=== PATIENT | male | born 1960 | race Caucasian/White ===

== ENCOUNTER → 2019-06-28 09:11 | Outpatient (BNVA) | payer MEDICARE, MEDICAID, SELFPAY | PROVIDERS: Family Provider Family Medicine; PCP Family Medicine; Visit Provider Nurse Practitioner Family | DX: I10 Essential (primary) hypertension (principal); E78.5 Hyperlipidemia, unspecified; F33.1 Major depressive disorder, recurrent, moderate; E78.1 Pure hyperglyceridemia; Z68.24 Body mass index [BMI] 24.0-24.9, adult | CPT/HCPCS: 80053; 80061; 83721 ==

== ENCOUNTER 2020-01-06 07:53 | Outpatient (CLI) | payer MEDICARE, SELFPAY ==
--- NOTE | 2020-01-06 08:03 | CT_ITS ---
WS: [id number] EXAM: CT chest wo con [id number] DATE OF EXAMINATION: 01/06/2020, 0838 hours COMPARISON: CT of the chest from 12/28/2018 and 04/17/2018 HISTORY: 59 years old with follow-up pulmonary nodules. TECHNIQUE: Transaxial computed tomography images obtained through the chest without the utilization o f contrast with images viewed in multiple windows with reconstructions. DLP: 1021.[address] scans at [facility] use at least one of these dose optimization techniques: automat ed exposure control; mA and/or kV adjustment per patient size (includes targeted exams where dose is matched to clinical indication); or iterative reconstruction. FINDINGS: The tiny nodules in the superior segment of the right lower lobe are less well visualized on today's examination most likely related to volume averaging artifact. If anything are less apparent. Have not enlarged. No additional pulmonary nodules are seen. Definitely have regressed in size since the 2018 CT. Slight changes of cylindrical bronchiectasis are seen bilaterally. No mediastinal mass or adenop athy is seen. Heart size is normal. Coronary artery calcifications demonstrated. Thoracic and upper a bdominal aorta is normal in caliber. Axillary regions are normal in appearance. Upper abdomen solid o rgan attenuation is unremarkable. CT/CT chest wo con [id number] IMPRESSION: 2 tiny nodules within the superior segment of the right lower lobe less well vi sualized on today's examination. Have regressed in size since 2018. Considered benign. No new or enlarging pulmonary nodule seen. Findings of slight cylindrical bronchiectasis.
== END 2020-01-06 07:54 | disposition home or self-care (01) ==
PROVIDERS: Family Provider Family Medicine; PCP Family Medicine; Visit Provider Family Medicine
DX: R91.8 Other nonspecific abnormal finding of lung field (principal)
CPT/HCPCS: 71250

== ENCOUNTER → 2020-01-20 10:16 | Outpatient (BNVA) | payer MEDICARE, SELFPAY | PROVIDERS: Family Provider Family Medicine; PCP Family Medicine; Visit Provider Nurse Practitioner Family | DX: I10 Essential (primary) hypertension (principal); E78.1 Pure hyperglyceridemia; E78.2 Mixed hyperlipidemia; L40.9 Psoriasis, unspecified | CPT/HCPCS: 80053; 80061; 83721; 84439; 84443 ==

== ENCOUNTER → 2020-07-07 09:07 | Outpatient (BNVA) | payer MEDICARE, SELFPAY | PROVIDERS: Family Provider Family Medicine; PCP Nurse Practitioner Family; Visit Provider Nurse Practitioner Family | DX: E78.2 Mixed hyperlipidemia (principal) | CPT/HCPCS: 80061; 80076; 82550; 83721 ==

== ENCOUNTER 2020-10-05 06:00 | Outpatient (RCR) | payer MEDICARE, SELFPAY | END 2020-10-16 23:59 | disposition home or self-care (01) | LOC: GPT 06:00 | PROVIDERS: Family Provider Family Medicine; PCP Nurse Practitioner Family; Referring Provider Nurse Practitioner Family; Visit Provider Nurse Practitioner Family | DX: M54.2 Cervicalgia (principal); G89.29 Other chronic pain; R51.9 Headache, unspecified | CPT/HCPCS: 97032; 97110; 97161; 97530 ==

== ENCOUNTER → 2020-11-02 08:57 | Outpatient (BNVA) | payer MEDICARE, SELFPAY | PROVIDERS: Family Provider Family Medicine; PCP Nurse Practitioner Family; Visit Provider Dermatology | DX: L40.9 Psoriasis, unspecified (principal); Z79.899 Other long term (current) drug therapy | CPT/HCPCS: 80053; 85025; 86480; 86705; 86706; 86709; 86803; 87340; 87806 ==

== ENCOUNTER → 2020-11-07 09:56 | Outpatient (BNVA) | payer MEDICARE, SELFPAY | PROVIDERS: Family Provider Family Medicine; PCP Nurse Practitioner Family; Visit Provider Dermatology | DX: L40.9 Psoriasis, unspecified (principal); Z79.899 Other long term (current) drug therapy | CPT/HCPCS: 86480 ==

== ENCOUNTER → 2020-11-13 08:22 | Outpatient (BNVA) | payer MEDICARE, SELFPAY | PROVIDERS: Family Provider Family Medicine; PCP Nurse Practitioner Family; Visit Provider Dermatology | DX: R76.12 Nonspecific reaction to cell mediated immunity measurement of gamma interferon antigen response without active tuberculosis (principal) | CPT/HCPCS: 71046 ==

== ENCOUNTER → 2021-01-05 09:13 | Outpatient (BNVA) | payer MEDICARE, SELFPAY | PROVIDERS: Family Provider Family Medicine; PCP Nurse Practitioner Family; Visit Provider Nurse Practitioner Family | DX: Z22.7 Latent tuberculosis (principal) | CPT/HCPCS: 80076 ==

== ENCOUNTER → 2021-02-05 07:42 | Outpatient (BNVA) | payer MEDICARE, SELFPAY | PROVIDERS: Family Provider Family Medicine; PCP Nurse Practitioner Family; Visit Provider Nurse Practitioner Family | DX: E78.2 Mixed hyperlipidemia (principal); F33.1 Major depressive disorder, recurrent, moderate; I10 Essential (primary) hypertension; Z68.25 Body mass index [BMI] 25.0-25.9, adult | CPT/HCPCS: 80053; 80061; 83721 ==

== ENCOUNTER → 2021-02-16 07:54 | Outpatient (BNVA) | payer MEDICARE, SELFPAY | PROVIDERS: Family Provider Family Medicine; PCP Nurse Practitioner Family; Visit Provider Nurse Practitioner Family | DX: R06.02 Shortness of breath (principal); R05.9 Cough, unspecified; Z20.822 Contact with and (suspected) exposure to COVID-19 | CPT/HCPCS: 87635 ==

== ENCOUNTER 2021-02-18 03:31 | Inpatient (IN) | payer MEDICARE, MEDICAID, SELFPAY ==
[2021-02-18] VITALS (13 sets, daily range): BP systolic 108–154; BP diastolic 84–91; PULSE 89–99; RESP 17–26; TEMP 36.8–37.6; O2SAT 93–97; BMI 25.0
--- NOTE | 2021-02-18 04:05 | W.ED.SOB ---
Documented by User: Baljit Scott, DO 02/18/21 07:53 HPI - SOB/Dyspnea General: Chief Complaint: Shortness of Breath/Dyspnea Stated Complaint: SOB Time Seen by Provider: 02/18/21 04:03 History of Present Illness: HPI Narrative: 60-year-old male on week 12 of treatment for tuberculosis. He states his disease was not really active. He is taking rifampin plus isoniazid. He presents with acute onset shortness of breath worsening over the last 3 to 4 days. He does not usually use oxygen. He has had some clear sputum production. No fever. Some chest discomfort on and off. He notes some diarrhea which resolved with medication. MD elicited complaint: shortness of breath and cough Pertinent past history: other Onset (ago): day(s) Context: recent illness Timing: constant and progressively worsening Severity: moderate Exacerbating factors: lying flat and exertion Relieving factors: oxygen Known history of: other Associated symptoms: Reports abdominal pain, chest congestion, chest pain and nausea; Deny diaphoresis, extremity pain, fever(s), hemoptysis, rash or vomiting Treatment prior to arrival: none Review of Systems Const: Denies: fever(s) or diaphoresis Card: Reports: chest pain Resp: Reports: chest congestion; Denies: hemoptysis GI: Reports: abdominal pain and nausea; Denies: vomiting Musc: Denies: extremity pain PFSH ED PFSH: Medical History COPD (chronic obstructive pulmonary disease) Depression Enrolled in chronic care management Essential hypertension GERD (gastroesophageal reflux disease) High risk medication use Hyperlipidemia Hypertriglyceridemia Latent tuberculosis by blood test Lesion of chest Lung nodules Migraine with aura and without status migrainosus, not intractable Moderate episode of recurrent major 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 Post-traumatic stress disorder, chronic F43.12 Psychiatric care Surgical History History of cataract extraction BILATERAL History of laminectomy Hx of heart artery stent Social History Alcohol intake: current Alcohol intake frequency: holidays/special occasions only Alcohol type: beer Physical Exam Const: GENERAL APPEARANCE: well developed ORIENTATION/CONSCIOUSNESS: Yes oriented to person, Yes oriented to place and Yes oriented to time HENMT: COMMON NORMALS: normocephalic, external ears normal and Normal external nose present HEAD & SCALP: normocephalic FACE & SINUS: normal facial exam NOSE: Normal external nose present and No nasal discharge present EXTERNAL EAR: Yes external ears normal Eye: COMMON NORMALS: Equal, round and reactive pupils present, EOMs intact bilaterally and conjunctivae normal EYELID: eyelids normal CONJUNCTIVA: Yes conjunctivae normal PUPIL: Yes Equal, round and reactive pupils present Neck/C-Spine: COMMON NORMALS: full ROM GENERAL: No tracheal deviation CERVICAL SPINE: Yes normal cervical lordosis and No Cervical spine tenderness Chest: COMMONS NORMALS: normal inspection of the chest CHEST: Yes tenderness Resp: COMMON NORMALS: clear to auscultation bilaterally EFFORT & INSPECTION: No tachypneic, No respiratory distress, No retractions, No uses accessory muscles and No tracheal deviation AUSCULTATION: clear to auscultation bilaterally, no rhonchi, no wheezes and lung sounds not diminished Cardio: COMMON NORMALS: regular rhythm RATE: tachycardic RHYTHM: regular rhythm HEART SOUNDS: no murmurs PERIPHERAL PULSES: radial pulses present GI: INSPECTION: No abdominal distension AUSCULTATION: No Hyperactive bowel sounds present and No Hypoactive bowel sounds present PALPATION: No Guarding due to palpation present (GI) and No Rigid due to palpation PERCUSSION: no dullness to percussion and no tympanic to percussion Neuro: SENSORIUM/ORIENTATION: Yes oriented to person, Yes oriented to place and Yes oriented to time Psych: COMMON NORMALS: mental status grossly normal Skin: COMMON NORMALS: no rashes or lesions noted GENERAL SKIN EXAM: no rashes or lesions noted Course Vital Signs: Vital signs: Vital Signs Temperature 98.2 F 02/18/21 03:33 Pulse Rate 96 02/18/21 08:38 Respiratory Rate 21 H 02/18/21 08:38 Blood Pressure 108/84 02/18/21 04:55 Pulse Oximetry 95 02/18/21 08:38 MDM - SOB/Dyspnea MDM Narrative: Medical decision making narrative: 60-year-old male with hypoxic respiratory failure. His chest x-ray does not show an infiltrate. His white count is 6.6 with mild relative lymphopenia. His D-dimer is not significantly elevated. He is feeling better after breathing treatment and Solu-Medrol. He is still on 4 L of oxygen satting only 92%. His blood pressure is 138/82. CTA of the chest is pending as is a second troponin at this point. He will be checked out to Dr. Olea at shift change to follow-up on these tests and provide appropriate disposition. Lab Data: Labs: Lab Results 02/18/21 02/18/21 02/18/21 04:00 04:00 04:00 WBC 6.6 10^3/uL 10^3/ uL (4.0-10.0) RBC 4.24 10^6/uL 10^6 /uL (4.1-5.3) Hgb 13.6 g/dL g/dL (11.7-16.6) Hct 40.9 % L % (42.0-52.0) MCV 96.5 fl H fl (80-94) MCH 32.1 pg pg (28.0-34.0) MCHC 33.3 g/dL g/dL (30.0-36.0) RDW 13.4 % % (12.1-15.1) Plt Count 130 10^3/cmm 10^3 /cmm (130-400) MPV 11.4 fL H fL (7.4-10.4) Neut % (Auto) 82.3 % % Lymph % (Auto) 7.4 % % [place] % (Auto) 9.3 % % Eos % (Auto) 0.3 % % Baso % (Auto) 0.2 % % Neut # (Auto) 5.47 10^3/uL 10^3 /uL (1.8-7.7) Lymph # (Auto) 0.5 10^3/uL L 10^ 3/uL (0.8-4.8) [place] # (Auto) 0.6 10^3/uL 10^3/ uL (0.2-0.9) Eos # (Auto) 0.0 10^3/uL 10^3/ uL (0.0-0.8) Baso # (Auto) 0.0 10^3/uL 10^3/ uL (0.0-0.1) Nucleated RBC % (a uto) 0 % % Nucleated RBCs # 0.0 /100WBC /100W BC D-Dimer 0.33 ug/mIFEU ug/ mIFEU (0-0.59) Specimen Type Sample Site ABG pH ABG pCO2 ABG pO2 ABG HCO3 ABG Base Excess Nicholas Test Hematocrit Hgb O2 Saturation Carboxyhemoglobin Methemoglobin Total Hemoglobin O2 Delivery Device O2 Liters/Min Assistant Teaching Professor ID Sodium 135 mmol/L L mmol /L (136-145) Potassium 4.2 mmol/L mmol/L (3.5-5.1) Chloride 100 mmol/L mmol/L (98-107) Carbon Dioxide 19 mmol/L L mmol/ L (22-29) Anion Gap 20.2 H (5-19) BUN 14 mg/dL mg/dL (8-23) Creatinine 0.7 mg/dL mg/dL (0.7-1.2) GFR Calculation 115.0 mL/min mL/m in (90-130) Glucose 99 mg/dL mg/dL (65-115) Calculated Osmolal ity 281 mOsm/kg L mOs m/kg (285-295) Lactic Acid Calcium 8.9 mg/dL mg/dL (8.5-10.5) Total Bilirubin 0.5 mg/dL mg/dL (0.15-1.2) AST 59 U/L H U/L (0-40) ALT 24 U/L U/L (0-41) Alkaline Phosphata se 148 IU/L H IU/L (40-130) Troponin T Baselin e Troponin T 120 Min [place] Troponin T NT-Pro-B Natriuret Pep 196 pg/mL H pg/mL (0-125) Total Protein 7.2 g/dL g/dL (6.6-8.7) Albumin 4.7 g/dL g/dL (3.5-5.2) Globulin 2.5 g/dL g/dL (1.3-4.6) Urine Color Urine Appearance Urine pH Ur Specific Gravit y Urine Protein Urine Glucose (UA) Urine Ketones Urine Blood Urine Nitrate Urine Bilirubin Urine Urobilinogen Ur Leukocyte [place] ase Urine RBC Urine WBC Ur Squamous Epith Cells Triple Phos Vidhi ls Amorphous Sediment Urine Bacteria Coarse Granular Ca sts Urine Mucus SARS-CoV-2 Ag (Rap id) 02/18/21 02/18/21 02/18/21 04:00 04:00 04:15 WBC RBC Hgb Hct MCV MCH MCHC RDW Plt Count MPV Neut % (Auto) Lymph % (Auto) [place] % (Auto) Eos % (Auto) Baso % (Auto) Neut # (Auto) Lymph # (Auto) [place] # (Auto) Eos # (Auto) Baso # (Auto) Nucleated RBC % (a uto) Nucleated RBCs # D-Dimer Specimen Type Sample Site ABG pH ABG pCO2 ABG pO2 ABG HCO3 ABG Base Excess Nicholas Test Hematocrit Hgb O2 Saturation Carboxyhemoglobin Methemoglobin Total Hemoglobin O2 Delivery Device O2 Liters/Min Assistant Teaching Professor ID Sodium Potassium Chloride Carbon Dioxide Anion Gap BUN Creatinine GFR Calculation Glucose Calculated Osmolal ity Lactic Acid 0.7 mmol/L mmol/L (0.5-2.2) Calcium Total Bilirubin AST ALT Alkaline Phosphata se Troponin T Baselin e 8 ng/L ng/L (0-15) Troponin T 120 Min [place] Troponin T NT-Pro-B Natriuret Pep Total Protein Albumin Globulin Urine Color Urine Appearance Urine pH Ur Specific Gravit y Urine Protein Urine Glucose (UA) Urine Ketones Urine Blood Urine Nitrate Urine Bilirubin Urine Urobilinogen Ur Leukocyte [place] ase Urine RBC Urine WBC Ur Squamous Epith Cells Triple Phos Vidhi ls Amorphous Sediment Urine Bacteria Coarse Granular Ca sts Urine Mucus SARS-CoV-2 Ag (Rap id) Negative (Negative) 02/18/21 02/18/21 02/18/21 04:29 04:30 06:41 WBC RBC Hgb Hct MCV MCH MCHC RDW Plt Count MPV Neut % (Auto) Lymph % (Auto) [place] % (Auto) Eos % (Auto) Baso % (Auto) Neut # (Auto) Lymph # (Auto) [place] # (Auto) Eos # (Auto) Baso # (Auto) Nucleated RBC % (a uto) Nucleated RBCs # D-Dimer Specimen Type Arterial Sample Site Radial, right ABG pH 7.36 (7.35-7.45) ABG pCO2 30.7 mmHg L mmHg (35-45) ABG pO2 103.0 mmHg H mmHg (80.0-100.0) ABG HCO3 17.2 mmol/L L mmo l/L (22-26) ABG Base Excess -7.1 mmol/L L mmo l/L (-2.0-2.0) Nicholas Test Pos Hematocrit 43.7 % % (42-52) Hgb O2 Saturation 95.8 % % (95-100) Carboxyhemoglobin 1.3 %THgb %THgb (0.4-20.1) Methemoglobin 0.9 % % (0.4-1.5) Total Hemoglobin 14.3 g/dL g/dL (14-18) O2 Delivery Device Nc O2 Liters/Min 3.0 % % Assistant Teaching Professor ID ellpe Sodium Potassium Chloride Carbon Dioxide Anion Gap BUN Creatinine GFR Calculation Glucose Calculated Osmolal ity Lactic Acid Calcium Total Bilirubin AST ALT Alkaline Phosphata se Troponin T Baselin e Troponin T 120 Min [place] 9.21 ng/L ng/L (0-15) [place] Troponin T 1.21 ABS# ABS# (0-10) NT-Pro-B Natriuret Pep Total Protein Albumin Globulin Urine Color Yellow (Yellow) Urine Appearance Clear (CLEAR) Urine pH 5 (5-7) Ur Specific Gravit y 1.020 (1.005-1.030) Urine Protein 1+ H (Negative) Urine Glucose (UA) Norm (Normal) Urine Ketones 1+ H (Negative) Urine Blood Neg (Negative) Urine Nitrate Negative (Negative) Urine Bilirubin 1+ H (Negative) Urine Urobilinogen 1 mg/dL H mg/dL (Negative) Ur Leukocyte [place] ase Negative (Negative) Urine RBC 0-4 /hpf H /hpf (0-2) Urine WBC 0-4 /hpf H /hpf (0-5) Ur Squamous Epith Cells 0-4 /hpf H /hpf (0-5) Triple Phos Vidhi ls 0-4 /hpf H /hpf Amorphous Sediment Not Reportable Urine Bacteria Trace /hpf /hpf (NONE) Coarse Granular Ca sts T /lpf /lpf Urine Mucus Trace /hpf /hpf SARS-CoV-2 Ag (Rap id) Discharge Plan Discharge Admit Provider: Randy Bush Sign Out Sign Out Data: Patient Sign Out occurred on 02/18/21 at 07:55. Patient's care was discussed, and care was transferred from to Renee Olea MD. Coding Level of Care Code ED Linux Consultant for Chg Fwd Exam Comprehensive Documented by User: Renee Olea MD 02/18/21 10:51 HPI - SOB/Dyspnea General: Chief Complaint: Shortness of Breath/Dyspnea Stated Complaint: SOB Time Seen by Provider: 02/18/21 04:03 PFSH ED PFSH: Medical History COPD (chronic obstructive pulmonary disease) Depression Enrolled in chronic care management Essential hypertension GERD (gastroesophageal reflux disease) High risk medication use Hyperlipidemia Hypertriglyceridemia Latent tuberculosis by blood test Lesion of chest Lung nodules Migraine with aura and without status migrainosus, not intractable Moderate episode of recurrent major 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 Post-traumatic stress disorder, chronic F43.12 Psychiatric care Surgical History History of cataract extraction BILATERAL History of laminectomy Hx of heart artery stent Social History Alcohol intake: current Alcohol intake frequency: holidays/special occasions only Alcohol type: beer Course Vital Signs: Vital signs: Vital Signs Temperature 98.2 F 02/18/21 03:33 Pulse Rate 96 02/18/21 08:38 Respiratory Rate 21 H 02/18/21 08:38 Blood Pressure 108/84 02/18/21 04:55 Pulse Oximetry 95 02/18/21 08:38 MDM - SOB/Dyspnea MDM Narrative: Medical decision making narrative: CTA is consistent with possible early Covid pneumonia. Given hypoxemia and wheezing, patient will be mated to hospital for further management. PCR pending. Patient received DuoNeb x3, Solu-Medrol, and magnesium in the ER Lab Data: Labs: Lab Results 02/18/21 02/18/21 02/18/21 04:00 04:00 04:00 WBC 6.6 10^3/uL 10^3/ uL (4.0-10.0) RBC 4.24 10^6/uL 10^6 /uL (4.1-5.3) Hgb 13.6 g/dL g/dL (11.7-16.6) Hct 40.9 % L % (42.0-52.0) MCV 96.5 fl H fl (80-94) MCH 32.1 pg pg (28.0-34.0) MCHC 33.3 g/dL g/dL (30.0-36.0) RDW 13.4 % % (12.1-15.1) Plt Count 130 10^3/cmm 10^3 /cmm (130-400) MPV 11.4 fL H fL (7.4-10.4) Neut % (Auto) 82.3 % % Lymph % (Auto) 7.4 % % [place] % (Auto) 9.3 % % Eos % (Auto) 0.3 % % Baso % (Auto) 0.2 % % Neut # (Auto) 5.47 10^3/uL 10^3 /uL (1.8-7.7) Lymph # (Auto) 0.5 10^3/uL L 10^ 3/uL (0.8-4.8) [place] # (Auto) 0.6 10^3/uL 10^3/ uL (0.2-0.9) Eos # (Auto) 0.0 10^3/uL 10^3/ uL (0.0-0.8) Baso # (Auto) 0.0 10^3/uL 10^3/ uL (0.0-0.1) Nucleated RBC % (a uto) 0 % % Nucleated RBCs # 0.0 /100WBC /100W BC D-Dimer 0.33 ug/mIFEU ug/ mIFEU (0-0.59) Specimen Type Sample Site ABG pH ABG pCO2 ABG pO2 ABG HCO3 ABG Base Excess Nicholas Test Hematocrit Hgb O2 Saturation Carboxyhemoglobin Methemoglobin Total Hemoglobin O2 Delivery Device O2 Liters/Min Assistant Teaching Professor ID Sodium 135 mmol/L L mmol /L (136-145) Potassium 4.2 mmol/L mmol/L (3.5-5.1) Chloride 100 mmol/L mmol/L (98-107) Carbon Dioxide 19 mmol/L L mmol/ L (22-29) Anion Gap 20.2 H (5-19) BUN 14 mg/dL mg/dL (8-23) Creatinine 0.7 mg/dL mg/dL (0.7-1.2) GFR Calculation 115.0 mL/min mL/m in (90-130) Glucose 99 mg/dL mg/dL (65-115) Calculated Osmolal ity 281 mOsm/kg L mOs m/kg (285-295) Lactic Acid Calcium 8.9 mg/dL mg/dL (8.5-10.5) Total Bilirubin 0.5 mg/dL mg/dL (0.15-1.2) AST 59 U/L H U/L (0-40) ALT 24 U/L U/L (0-41) Alkaline Phosphata se 148 IU/L H IU/L (40-130) Troponin T Baselin e Troponin T 120 Min [place] Troponin T NT-Pro-B Natriuret Pep 196 pg/mL H pg/mL (0-125) Total Protein 7.2 g/dL g/dL (6.6-8.7) Albumin 4.7 g/dL g/dL (3.5-5.2) Globulin 2.5 g/dL g/dL (1.3-4.6) Urine Color Urine Appearance Urine pH Ur Specific Gravit y Urine Protein Urine Glucose (UA) Urine Ketones Urine Blood Urine Nitrate Urine Bilirubin Urine Urobilinogen Ur Leukocyte [place] ase Urine RBC Urine WBC Ur Squamous Epith Cells Triple Phos Vidhi ls Amorphous Sediment Urine Bacteria Coarse Granular Ca sts Urine Mucus SARS-CoV-2 Ag (Rap id) 02/18/21 02/18/21 02/18/21 04:00 04:00 04:15 WBC RBC Hgb Hct MCV MCH MCHC RDW Plt Count MPV Neut % (Auto) Lymph % (Auto) [place] % (Auto) Eos % (Auto) Baso % (Auto) Neut # (Auto) Lymph # (Auto) [place] # (Auto) Eos # (Auto) Baso # (Auto) Nucleated RBC % (a uto) Nucleated RBCs # D-Dimer Specimen Type Sample Site ABG pH ABG pCO2 ABG pO2 ABG HCO3 ABG Base Excess Nicholas Test Hematocrit Hgb O2 Saturation Carboxyhemoglobin Methemoglobin Total Hemoglobin O2 Delivery Device O2 Liters/Min Assistant Teaching Professor ID Sodium Potassium Chloride Carbon Dioxide Anion Gap BUN Creatinine GFR Calculation Glucose Calculated Osmolal ity Lactic Acid 0.7 mmol/L mmol/L (0.5-2.2) Calcium Total Bilirubin AST ALT Alkaline Phosphata se Troponin T Baselin e 8 ng/L ng/L (0-15) Troponin T 120 Min [place] Troponin T NT-Pro-B Natriuret Pep Total Protein Albumin Globulin Urine Color Urine Appearance Urine pH Ur Specific Gravit y Urine Protein Urine Glucose (UA) Urine Ketones Urine Blood Urine Nitrate Urine Bilirubin Urine Urobilinogen Ur Leukocyte [place] ase Urine RBC Urine WBC Ur Squamous Epith Cells Triple Phos Vidhi ls Amorphous Sediment Urine Bacteria Coarse Granular Ca sts Urine Mucus SARS-CoV-2 Ag (Rap id) Negative (Negative) 02/18/21 02/18/21 02/18/21 04:29 04:30 06:41 WBC RBC Hgb Hct MCV MCH MCHC RDW Plt Count MPV Neut % (Auto) Lymph % (Auto) [place] % (Auto) Eos % (Auto) Baso % (Auto) Neut # (Auto) Lymph # (Auto) [place] # (Auto) Eos # (Auto) Baso # (Auto) Nucleated RBC % (a uto) Nucleated RBCs # D-Dimer Specimen Type Arterial Sample Site Radial, right ABG pH 7.36 (7.35-7.45) ABG pCO2 30.7 mmHg L mmHg (35-45) ABG pO2 103.0 mmHg H mmHg (80.0-100.0) ABG HCO3 17.2 mmol/L L mmo l/L (22-26) ABG Base Excess -7.1 mmol/L L mmo l/L (-2.0-2.0) Nicholas Test Pos Hematocrit 43.7 % % (42-52) Hgb O2 Saturation 95.8 % % (95-100) Carboxyhemoglobin 1.3 %THgb %THgb (0.4-20.1) Methemoglobin 0.9 % % (0.4-1.5) Total Hemoglobin 14.3 g/dL g/dL (14-18) O2 Delivery Device Nc O2 Liters/Min 3.0 % % Assistant Teaching Professor ID ellpe Sodium Potassium Chloride Carbon Dioxide Anion Gap BUN Creatinine GFR Calculation Glucose Calculated Osmolal ity Lactic Acid Calcium Total Bilirubin AST ALT Alkaline Phosphata se Troponin T Baselin e Troponin T 120 Min [place] 9.21 ng/L ng/L (0-15) Delta Troponin T 1.21 ABS# ABS# (0-10) NT-Pro-B Natriuret Pep Total Protein Albumin Globulin Urine Color Yellow (Yellow) Urine Appearance Clear (CLEAR) Urine pH 5 (5-7) Ur Specific Gravit y 1.020 (1.005-1.030) Urine Protein 1+ H (Negative) Urine Glucose (UA) Norm (Normal) Urine Ketones 1+ H (Negative) Urine Blood Neg (Negative) Urine Nitrate Negative (Negative) Urine Bilirubin 1+ H (Negative) Urine Urobilinogen 1 mg/dL H mg/dL (Negative) Ur Leukocyte [place] ase Negative (Negative) Urine RBC 0-4 /hpf H /hpf (0-2) Urine WBC 0-4 /hpf H /hpf (0-5) Ur Squamous Epith Cells 0-4 /hpf H /hpf (0-5) Triple Phos Vidhi ls 0-4 /hpf H /hpf Amorphous Sediment Not Reportable Urine Bacteria Trace /hpf /hpf (NONE) Coarse Granular Ca sts T /lpf /lpf Urine Mucus Trace /hpf /hpf SARS-CoV-2 Ag (Rap id) Imaging Data^: Other Imaging: Radiologist's impression: [employer] [id number] Scan ReportSigned Patient: Mickey Mello #: [id number]: [id number]#:[id number]/Sex: 60 / MADM Date: 02/18/21Loc: ERRoom/Bed:Attending Dr: Ordering Provider/Ordering MD: Baljit Scott DO Date of Service: 02/18/21 Procedure(s): CT angio chest PE protcl [id number] Accession Number(s): [id number] Report Number: [id number] PROCEDURE INFORMATION: Exam: CTA Chest With Contrast Exam date and time: 02/18/2021 6:00 AM Age: 60 years old Clinical indication: Shortness of breath; Prior surgery; Surgery type: Stents; Additional info: Chest pain TECHNIQUE: Imaging protocol: Computed tomographic angiography of the chest with contrast. 3D rendering (Not supervised by radiologist): MIP and/or 3D reconstructed images were created by the technologist. Radiation optimization: All CT scans at this facility use at least one of these dose optimization techniques: automated exposure control; mA and/or kV adjustment per patient size (includes targeted exams where dose is matched to clinical indication); or iterative reconstruction. Contrast material: OMNI 300; Contrast volume: 95 ml; Contrast route: INTRAVENOUS (IV); COMPARISON: CT chest wo [facility] [id number] 01/06/2020 8:36 AM RADIATION DOSE METRICS: Total DLP (mGy-cm): 1132.31 FINDINGS: Pulmonary arteries: Normal in caliber. No evidence of pulmonary embolism to the segmental level. Peripheral arterial branches at the lung bases are incompletely evaluated due to motion; subsegmental emboli not entirely excluded. Aorta: Unremarkable. No aortic aneurysm. No aortic dissection. Lungs: The lungs are symmetrically expanded. Mild bronchial wall thickening with subtle scattered centrilobular ground-glass opacities bilaterally but primarily within the right upper lobe consistent with mild infectious or inflammatory airways process. No focal consolidation. Central airways normal caliber and patent. Pleural spaces: Unremarkable. No pneumothorax. No pleural effusion. Heart: Normal in size. Coronary artery calcifications noted. No pericardial effusion Lymph nodes: No lymphadenopathy. Bones/joints: No acute or aggressive osseous lesion. Soft tissues: Unremarkable. CT/CT angio chest PE protcl [id number] IMPRESSION: 1. No evidence of pulmonary embolism to the segmental level. The peripheral arterial branches within the lung bases are incompletely evaluated due to motion and subsegmental emboli are not entirely excluded. 2. Subtle centrilobular ground-glass opacities noted bilaterally but primarily within the anterior segment of the right upper lobe, consistent with mild nonspecific infectious or inflammatory airways process. No lobar consolidation. Radiation Dose CTDIVOL = (mGy): DLP = 1132.31 (mGy-cm) Dictated By:Anatoliy Arboleda MDSigned By:Anatoliy Arboleda MDSigned Date/Time:02/18/21 0846DD/ 0844 Discharge Plan Discharge Admit Provider: Randy Bush Sign Out Sign Out Data: Patient Sign Out occurred on 02/18/21 at 07:55. Patient's care was discussed, and care was transferred from to Renee Olea MD. Coding Level of Care Code ED Linux Consultant for Chg Fwd Exam Comprehensive
--- NOTE | 2021-02-18 04:29 | XRR_ITS ---
PROCEDURE INFORMATION: Exam: XR Chest Exam date and time: 02/18/2021 4:29 AM Age: 60 years old Clinical indication: Cough and dyspnea; Additional info: SOB TECHNIQUE: Imaging protocol: XR of the chest. Views: 1 view. COMPARISON: CR XR chest 2V* [id number] 11/13/2020 8:34 AM FINDINGS: Lungs: There is a background emphysema and pulmonary fibrosis. Pleural spaces: Unremarkable. No pleural effusion. No pneumothorax. Heart/Mediastinum: Unremarkable. No cardiomegaly. Bones/joints: Unremarkable. XR/XR chest 1V portable [id number] IMPRESSION: There are no acute chest findings. Stable appearance of the chest compared with 11/13/2020.
--- NOTE | 2021-02-18 04:30 | ECG_ITS ---
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
[2021-02-18] MEDS: morphine 4 mg/mL SDV 1 mL IVP (04:41)
[2021-02-18] MEDS: ondansetron 2 mg/ML SDV 2 mL 4 MG IVP (04:41)
[2021-02-18] MEDS: albuterol 8 gm MDI 4 PUFF INHALATION (04:42)
[2021-02-18 04:46] LABS: Basophils % 0.2 %; Eosinophils % 0.3 %; Hematocrit 40.9 % (42.0-52.0); Hemoglobin 13.6 g/dL (11.7-16.6); Lymphocytes # 0.5 10^3/uL (0.8-4.8); Lymphocytes % 7.4 %; Mean Corpuscular HGB Conc 33.3 g/dL (30.0-36.0); Mean Corpuscular Hemoglobin 32.1 pg (28.0-34.0); Mean Corpuscular Volume 96.5 fl (80-94); Mean Platelet Volume 11.4 fL (7.4-10.4); Monocytes # 0.6 10^3/uL (0.2-0.9); Monocytes % 9.3 %; Neutrophils # 5.47 10^3/uL (1.8-7.7); Neutrophils % 82.3 %; Nucleated Red Blood Cells % 0 %; Platelet Count 130 10^3/cmm (130-400); Red Blood Count 4.24 10^6/uL (4.1-5.3); Red Cell Distribution Width 13.4 % (12.1-15.1); White Blood Count 6.6 10^3/uL (4.0-10.0)
[2021-02-18 04:48] LABS: ABG PCO2 30.7 mmHg (35-45); ABG PH Result 7.36 (7.35-7.45); Arterial Blood Gas Hematocrit 43.7 % (42-52); Base Excess ABG -7.1 mmol/L (-2.0-2.0); Blood Gas Allen Test Pos; Blood Gas Sample Site Radial, right; Blood Gas Sample Type Arterial; Carboxyhemoglobin 1.3 %THgb (0.4-20.1); HCO3 ABG 17.2 mmol/L (22-26); HGB O2 Sat 95.8 % (95-100); Methemoglobin 0.9 % (0.4-1.5); Oxygen Device NC; Total Hemoglobin 14.3 g/dL (14-18)
[2021-02-18 04:51] LABS: Blood Urine Neg (Negative); Glucose Urine UA Norm (Normal); Ketones Urine 1+ (Negative); Nitrate Urine Negative (Negative); Protein Urine 1+ (Negative); Urine Appearance Clear (CLEAR); Urine Color Yellow (Yellow); pH Urine 5 (5-7)
[2021-02-18 04:52] LABS: Add Urine Microscopic? YES; Bilirubin Urine 1+ (Negative); Leukocyte Esterase Urine Negative (Negative); Urobilinogen Urine 1 mg/dL (Negative)
[2021-02-18 04:53] LABS: D Dimer 0.33 ug/mIFEU (0-0.59)
[2021-02-18 04:55] LABS: Add Urine Culture? No; Bacteria Urine TRACE /hpf; Coarse Granular Casts Urine T /lpf; Mucus Urine TRACE /hpf; RBC Urine 0-4 /hpf (0-2); Squamous Epithelial Cell Urine 0-4 /hpf (0-5); Triple Phosphate Crystal Urine 0-4 /hpf; WBC Urine 0-4 /hpf (0-5)
[2021-02-18 04:57] LABS: Troponin(5th) Baseline 8 ng/L (0-15)
[2021-02-18 04:59] LABS: Lactic Sepsis W/Reflex 0.7 mmol/L (0.5-2.2)
[2021-02-18 05:04] LABS: SARS Covid-2 Antigen Negative (Negative)
[2021-02-18 05:09] LABS: Alanine Aminotransferase 24 U/L (0-41); Albumin Level 4.7 g/dL (3.5-5.2); Alkaline Phosphatase 148 IU/L (40-130); Anion Gap 20.2 (5-19); Aspartate Amino Transferase 59 U/L (0-40); Blood Urea Nitrogen 14 mg/dL (8-23); Calcium 8.9 mg/dL (8.5-10.5); Carbon Dioxide 19 mmol/L (22-29); Chloride 100 mmol/L (98-107); Globulin 2.5 g/dL (1.3-4.6); Glucose 99 mg/dL (65-115); NT Pro B Type Natriuretic Pept 196 pg/mL (0-125); Osmolality Calculated 281 mOsm/kg (285-295); Potassium 4.2 mmol/L (3.5-5.1); Sodium 135 mmol/L (136-145); Total Bilirubin 0.5 mg/dL (0.15-1.2); Total Protein 7.2 g/dL (6.6-8.7)
--- NOTE | 2021-02-18 06:00 | CTR_ITS ---
PROCEDURE INFORMATION: Exam: CTA Chest With Contrast Exam date and time: 02/18/2021 6:00 AM Age: 60 years old Clinical indication: Shortness of breath; Prior surgery; Surgery type: Stents; Additional info: Chest pain TECHNIQUE: Imaging protocol: Computed tomographic angiography of the chest with contrast. 3D rendering (Not supervised by radiologist): MIP and/or 3D reconstructed images were created by the technologist. Radiation optimization: All CT scans at this facility use at least one of these dose optimization techniques: automated exposure control; mA and/or kV adjustment per patient size (includes targeted exams where dose is matched to clinical indication); or iterative reconstruction. Contrast material: OMNI 300; Contrast volume: 95 ml; Contrast route: INTRAVENOUS (IV); COMPARISON: CT chest wo con [id number] 01/06/2020 8:36 AM RADIATION DOSE METRICS: Total DLP (mGy-cm): 1132.31 FINDINGS: Pulmonary arteries: Normal in caliber. No evidence of pulmonary embolism to the segmental level. Peripheral arterial branches at the lung bases are incompletely evaluated due to motion; subsegmental emboli not entirely excluded. Aorta: Unremarkable. No aortic aneurysm. No aortic dissection. Lungs: The lungs are symmetrically expanded. Mild bronchial wall thickening with subtle scattered centrilobular ground-glass opacities bilaterally but primarily within the right upper lobe consistent with mild infectious or inflammatory airways process. No focal consolidation. Central airways normal caliber and patent. Pleural spaces: Unremarkable. No pneumothorax. No pleural effusion. Heart: Normal in size. Coronary artery calcifications noted. No pericardial effusion Lymph nodes: No lymphadenopathy. Bones/joints: No acute or aggressive osseous lesion. Soft tissues: Unremarkable. CT/CT angio chest PE protcl [id number] IMPRESSION: 1. No evidence of pulmonary embolism to the segmental level. The peripheral arterial branches within the lung bases are incompletely evaluated due to motion and subsegmental emboli are not entirely excluded. 2. Subtle centrilobular ground-glass opacities noted bilaterally but primarily within the anterior segment of the right upper lobe, consistent with mild nonspecific infectious or inflammatory airways process. No lobar consolidation. Radiation Dose CTDIVOL = (mGy): DLP = 1132.31 (mGy-cm)
--- NOTE | 2021-02-18 06:30 | ECG_ITS ---
[facility] Test Date: 2021-02-18 Pat Name: Mickey Mello Department: Room: Gender: Male Purchasing Internship: : 1960 Requested By: Baljit Harrell Order Number: [id number] Reading MD: SINA CARBAJAL Measurements Intervals [place] Rate: 93 P: 56 IA: 156 QRS: 64 QRSD: 86 T: 84 QT: 364 QTc: 453 Interpretive Statements SINUS RHYTHM PROBABLE ANTERIOR MYOCARDIAL INFARCTION , PROBABLY OLD [35 ms Q WAVE IN V3/V4] Compared to ECG 02/18/2021 03:46:48 No significant changes Electronically Signed On 02-19-2021 20:24:29 CDT by SINA CARBAJAL [id number]
[2021-02-18] MEDS: iohexol 350 mg/mL 100 mL Btl IV (07:09)
[2021-02-18 07:21] LABS: Troponin 5 2HR 9.21 ng/L (0-15); Troponin 5 2HR Delta 1.21 ABS# (0-10)
[2021-02-18] MEDS: ipratropium-albuterol 3 mL Neb INHALATION ×5 (08:23→21:18)
[2021-02-18] MEDS: magnesium sulfate premix 2 GM/50 ML PIGGYBACK IV (08:50)
--- NOTE | 2021-02-18 10:30 | ECG_ITS ---
[facility] Test Date: 2021-02-18 Pat Name: Mickey Mello Department: Room: 276 Gender: Male Womens Health Nurse Practitioner: : 1960 Requested By: Baljit Harrell Order Number: [id number] Reading MD: SINA CARBAJAL Measurements Intervals [place] Rate: 97 P: 73 KS: 164 QRS: 66 QRSD: 84 T: 79 QT: 352 QTc: 449 Interpretive Statements SINUS RHYTHM NONSPECIFIC ST & T-WAVE ABNORMALITY Compared to ECG 02/18/2021 06:16:53 T-wave abnormality now present Myocardial infarct finding no longer present Electronically Signed On 02-19-2021 20:23:54 CDT by SINA CARBAJAL [id number]
[2021-02-18 11:17] LABS: Troponin 5 6HR 8.11 ng/L (0-15); Troponin 5 6HR Delta 0.11 ng/L (0-12)
--- NOTE | 2021-02-18 12:29 | PC.NURSE ---
ADMIT NOTE UP VIA ROOM WITH ER STAFF AT SIDE 02 5L NC - AP RRR - NO TELE AVAILABLE AT PRESENT TIME - WILL NOTIFY DR - LUNGS NOTED TO HAVE INSP WHEEZES THROUGHOUT - ABD SOFT WITH NO DISTENTION - IV PIID NOTED TO LEFT AC - KITTY KNEES NOTED TO HAVE LARGE AREAS OF PSORASIS - PPP - PT HAS BELONGINGS AT SIDE - ORIENTATION TO ROOM GIVEN - HAND HELD CALL LIGHT IN PLACE
--- NOTE | 2021-02-18 12:30 | PM.HP ---
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 Denies chest pain or pressure. Chest x-ray without sign of pneumonia. Rapid COVID-19 negative, PCR pending. Reports has been vaccinated for COVID-19. Review of Systems Const: Denies: fever(s), chills, body aches or malaise Eyes: Denies: change in vision or eye redness ENMT: Denies: throat pain, oral sores or ear or mastoid pain Card: Denies: chest pain, edema, pre-syncope or dyspnea on exertion Resp: Reports: dyspnea and productive cough; Denies: change in phlegm color or hemoptysis GI: Denies: abdominal pain, nausea, vomiting, diarrhea, constipation, hematochezia or melena : Denies: flank pain, difficulty urinating, urinary frequency or hematuria Musc: Denies: back pain, joint swelling or joint redness Skin/Breast: Denies: rash, sores or new lesions Neuro: Denies: headache(s), numbness in extremities, weakness in extremities, dizziness, confusion or seizure-like activity Endo: Denies: polyuria or polydipsia Kenny/Lymph: Denies: easy bleeding or purpura All/Imm: Denies: urticaria, throat swelling or tongue swelling Medications/Allergies Home Medications Medication Instructions Recorded Confirmed Last Taken Type nitroglycerin 0.4 mg sublingual 0.4 mg SUBLINGUAL Q5M PRN #25 tab 06/11/19 02/18/21 Unknown Rx tablet diphenhydramine 25 1 tab PO .COMPLEX PRN tab 01/20/20 02/18/21 Unknown History mg-acetaminophen 500 mg tablet rosuvastatin 20 mg tablet 20 mg PO DAILY #30 tab 07/12/20 02/18/21 02/17/21 Rx ondansetron HCl 4 mg tablet 4 mg PO Q8H PRN #14 tab 12/05/20 02/18/21 Unknown Rx famotidine 20 mg tablet 20 mg PO BID PRN #30 tab 01/04/21 02/18/21 Unknown Rx sertraline 50 mg tablet See Rx Instructions .ROUTE 01/04/21 02/18/21 02/18/21 Rx .COMPLEX #60 unspecified bupropion HCl 100 mg tablet 50 mg PO BID #90 tab 02/05/21 02/18/21 02/18/21 Rx propranolol 20 mg tablet 20 mg PO DAILY tab 02/05/21 02/18/21 02/18/21 History sumatriptan succinate 100 mg tablet See Rx Instructions .ROUTE 02/05/21 02/18/21 Unknown Rx .COMPLEX #90 tab clopidogrel [Plavix] 75 mg PO DAILY 02/18/21 02/18/21 02/18/21 History cyanocobalamin (vitamin B-12) 500 mcg PO DAILY 02/18/21 02/18/21 02/18/21 History [Vitamin B-12] gemfibrozil 600 mg PO BID 02/18/21 02/18/21 02/18/21 History isoniazid 900 mg PO Q7D 02/18/21 02/18/21 02/15/21 History lisinopril 10 mg PO DAILY 02/18/21 02/18/21 02/18/21 History rifapentine 900 mg PO Q7D 02/18/21 02/18/21 02/16/21 History Allergies Allergy/AdvReac Type Severity Reaction Status Date / Time No Known Allergies Allergy Verified 02/16/21 10:10 PFSH Acute PFSH: Medical History COPD (chronic obstructive pulmonary disease) Depression Enrolled in chronic care management Essential hypertension GERD (gastroesophageal reflux disease) High risk medication use Hyperlipidemia Hypertriglyceridemia Latent tuberculosis by blood test Lesion of chest Lung nodules Migraine with aura and without status migrainosus, not intractable Moderate episode of recurrent major 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 Post-traumatic stress disorder, chronic F43.12 Psychiatric care Surgical History History of cataract extraction BILATERAL History of laminectomy Hx of heart artery stent Family History Other Adopted Social History (Updated 02/18/21 @ 12:32 by Randy Bush MD) Smoking and tobacco status: current every day smoker cigarettes Packs smoked per day: 0.25 Alcohol intake: current Alcohol intake frequency: holidays/special occasions only Alcohol type: beer Substance/Drug Use: never Lives independently: Yes Household members: none Marital status: Current occupational status: disabled Vitals/I&O/Wt Last Vital Signs Temp 98.2 F 02/18/21 03:33 Pulse 96 02/18/21 08:38 Resp 21 H 02/18/21 08:38 BP 108/84 02/18/21 04:55 Pulse Ox 95 02/18/21 08:38 Weight last 48 hrs Weight 88.451 kg Physical Exam Const: COMMON NORMALS: no acute distress and patient oriented x3 HENMT: COMMON NORMALS: oropharynx normal Neck/C-Spine: COMMON NORMALS: no JVD Resp: COMMON NORMALS: normal respiratory effort AUSCULTATION: wheezes and diminished lung sounds Cardio: COMMON NORMALS: no JVD, regular rhythm, S1 normal heart sound present, S2 normal heart sound present and No murmurs present (Cardio) RHYTHM: regular rhythm HEART SOUNDS: S1 normal heart sound present and S2 normal heart sound present GI: COMMON NORMALS: Normal to inspection, nondistended, normoactive bowel sounds present, Soft to palpation and non-tender PALPATION: Yes Soft to palpation Extremity: COMMON NORMALS: no joint enlargement and no pedal edema Neuro: COMMON NORMALS: patient oriented x3 and moves all extremities Skin: COMMON NORMALS: no rashes or lesions noted RASHES: rashes noted (Psoriasis patches on forehead, elbows, knees) Data : 02/18/21 04:00 02/18/21 04:00 Micro: Microbiology 02/18/21 05:00 Blood Culture - Preliminary Blood SPECIMEN COLLECTED 02/18/21 04:45 Blood Culture - Preliminary Blood SPECIMEN COLLECTED A&P Assessment and plan (1) COPD exacerbation: New hypoxic respite failure with bronchospasm, wheezing, requiring 5 L of oxygen for his normally does not use supplemental oxygen. Chest x-ray clear without acute pneumonia. CTA sign of with noted subtle centrilobular groundglass opacities bilaterally but primarily within the anterior segment of right upper lobe consistent with mild nonspecific infectious or inflammatory airway process. Possible atypical pneumonia. Will check rapid flu. Pending COVID-19 PCR. Negative rapid test, and has been vaccinated, although discussed with him low possibility still could have breakthrough infection. Reports nonpurulent appearing sputum. Cough. Obtain sputum culture. For now no antibiotic as presentation not consistent with bacterial pneumonia, no [place] ptosis, fever, no other signs of sepsis. However, add antibiotic in case there are changes in sputum consistency or other clinical parameters. Reports his PCP was not sure he has COPD, although has not had PFT in years, previously was diagnosed with COPD by someone. Discussed with him he will need PFT after recovers from acute condition. Encourage smoking cessation. Status: Acute (2) Hypoxia: As above Status: Acute (3) Smoking addiction: Discussed with him extensively smoking cessation. Discussed he already has history of coronary artery stenting, CAD, and with psoriasis discussed with him significantly increased risk of CAD, cardiovascular events compared to general population. Encouraged him strongly to quit smoking. He verbalized understanding, states he intends not to smoke any further. We will provide nicotine replacement as needed. Continue to encourage cessation. Status: Acute (4) Latent tuberculosis by blood test: Continue treatment. Status: Acute Additional A&P Information Psoriasis: Pending initiation of additional treatment after completes treatment of latent tuberculosis. CAD Migraine with aura HTN HLD GERD Other chronic conditions noted Attestations Medical Necessity Statement*: Admission of over 2 midnights is continued for assessment of management of hypoxic respite failure with COPD exacerbation. Coding Level of Care Code Acute Armature Balancer for [facility] Fwd Diagnoses COPD exacerbation J44.1 Hypoxia R09.02 Smoking addiction F17.200 Latent tuberculosis by blood test Z22.7
[2021-02-18] MEDS: clopidogrel 75 mg Tablet PO (14:07)
[2021-02-18] MEDS: enoxaparin 40 mg/0.4 mL Syringe SUBCUT (14:07)
[2021-02-18 14:29] LABS: Influenza A by IFA Negative (Negative); Influenza B by IFA Negative (Negative)
[2021-02-18] MEDS: acetaminophen 325 mg Tablet 650 MG PO (14:52)
[2021-02-18] MEDS: sertraline 50 mg Tablet PO (17:12)
[2021-02-18] MEDS: famotidine 20 mg Tablet PO (17:12)
[2021-02-18] MEDS: gemfibrozil 600 mg Tablet PO (17:12)
[2021-02-18] MEDS: diphenhydrAMINE 25 mg Capsule PO (20:53)
[2021-02-18] MEDS: acetaminophen 500 mg Tablet PO (20:53)
[2021-02-18] MEDS: budesonide 0.5 mg/2 mL Neb INHALATION (21:19)
[2021-02-19] VITALS (11 sets, daily range): BP systolic 101–169; BP diastolic 58–101; PULSE 61–103; RESP 17–22; TEMP 36.4–37.6; O2SAT 93–99
[2021-02-19] MEDS: ipratropium-albuterol 3 mL Neb INHALATION ×4 (03:30→20:40)
--- NOTE | 2021-02-19 04:27 | PC.NURSE ---
i reported high reps 22 to nurse
--- NOTE | 2021-02-19 06:00 | XR_ITS ---
WS: [id number] XR chest 1V portable [id number] REASON FOR EXAM: Hypoxia FINDINGS: Heart and mediastinum are within normal limits. Calcified granulomatous disease in both hemithoraces. No active pulmonary parenchymal pleural disease. Bony thorax intact. Chest unchanged compared to 02/18/2021. XR/XR chest 1V portable [id number] IMPRESSION: No acute chest abnormality.
[2021-02-19 06:08] LABS: Hematocrit 36.1 % (42.0-52.0); Hemoglobin 12.3 g/dL (11.7-16.6); Lymphocytes # 0.3 10^3/uL (0.8-4.8); Lymphocytes % 6.7 %; Mean Corpuscular HGB Conc 34.1 g/dL (30.0-36.0); Mean Corpuscular Hemoglobin 31.7 pg (28.0-34.0); Mean Platelet Volume 10.9 fL (7.4-10.4); Monocytes # 0.2 10^3/uL (0.2-0.9); Monocytes % 4.8 %; Neutrophils # 4.06 10^3/uL (1.8-7.7); Neutrophils % 88.3 %; Nucleated Red Blood Cells % 0 %; Platelet Count 120 10^3/cmm (130-400); Red Blood Count 3.88 10^6/uL (4.1-5.3); White Blood Count 4.6 10^3/uL (4.0-10.0)
[2021-02-19 06:24] LABS: Alanine Aminotransferase 23 U/L (0-41); Albumin Level 4.4 g/dL (3.5-5.2); Alkaline Phosphatase 128 IU/L (40-130); Anion Gap 15.3 (5-19); Aspartate Amino Transferase 59 U/L (0-40); Blood Urea Nitrogen 13 mg/dL (8-23); Calcium 8.6 mg/dL (8.5-10.5); Carbon Dioxide 22 mmol/L (22-29); Chloride 99 mmol/L (98-107); Globulin 2.7 g/dL (1.3-4.6); Glomerular Filtration Rate 137.4 mL/min (90-130); Glucose 148 mg/dL (65-115); Osmolality Calculated 277 mOsm/kg (285-295); Potassium 4.3 mmol/L (3.5-5.1); Sodium 132 mmol/L (136-145); Total Bilirubin 0.2 mg/dL (0.15-1.2); Total Protein 7.1 g/dL (6.6-8.7)
[2021-02-19] MEDS: gemfibrozil 600 mg Tablet PO ×2 (08:08→18:02)
[2021-02-19] MEDS: cyanocobalamin 1,000 mcg Tablet 500 MCG PO (08:08)
[2021-02-19] MEDS: sertraline 50 mg Tablet PO ×2 (08:08→18:02)
[2021-02-19] MEDS: famotidine 20 mg Tablet PO ×2 (08:09→18:02)
[2021-02-19] MEDS: clopidogrel 75 mg Tablet PO (08:09)
[2021-02-19] MEDS: lisinopril 10 mg Tablet PO (08:09)
[2021-02-19] MEDS: budesonide 0.5 mg/2 mL Neb INHALATION ×2 (08:45→20:40)
[2021-02-19] MEDS: benzonatate 100 mg Capsule 200 MG PO (09:15)
[2021-02-19] MEDS: propranolol 20 mg Tablet PO (09:15)
[2021-02-19] MEDS: TRAMadol 50 mg Tablet PO (09:15)
--- NOTE | 2021-02-19 13:16 | PC.CHAP ---
Pastoral Care Encounter/Spiritual Assessment Type of Contact [] Declined glass grinder visit [] Patient/Family/Request visit [] Outpatient visit [] Follow-up visit [] Physician referral [] Code/Alert [x] Routine visit [x] Staff referral [] Actively dying [] Patient sleeping [] Family support [] [] Out of room [] Palliative care [] [] Receiving care in room [] Pre-surgical visit [] Trauma [] Long length of stay [] ICU visit [] Other: Relational/Emotional Strength [] Patient feels connected with others/family/visitors/staff [] Distress [] Loneliness/isolation [] Abandonment Spirituality of Patient [x] Person of Katharina [x] Attends Sabianism of their Katharina [x] Believes in Prayer [x] Reads Bible or Baptism materials [] There are Spiritual issues to be addressed Orthodontic Laboratory Technician Interventions [x] Prayer [x] Active listening [x] Non-anxious presence [x] Spiritual/emotional support [] Crisis/trauma care [x] Spiritual counseling [] Bereavement support [] Provided bereavement packet [] Provided Bible/devotional materials [] Provided toy/stuffed animal, coloring book to patient or family member [] Provided Communion [] Anointing/[place] [] Salvation [x] Completed spiritual assessment [] Other: Impact on Illness or Injury [] Angry [x] Fearful [] Anxious [] Often cries [] Exhaustion [] Unable to work [] Unable to attend spiritism [] Unable to walk/stand [] Unable to read [] Unable to drive [] Unable to eat/drink [] Unable to sleep [] Unable to be with family [] Patient intubated [] Other: Summary Time spent with patient 20 min
[2021-02-19 13:47] LABS: Coronavirus Test Green County Not Detected
[2021-02-19] MEDS: levoFLOXacin 500 mg Tablet PO (13:48)
[2021-02-19] MEDS: enoxaparin 40 mg/0.4 mL Syringe SUBCUT (13:48)
--- NOTE | 2021-02-19 14:12 | PC.RESP ---
Sent Smoking Cessation and Pulmonary Rehab information.
--- NOTE | 2021-02-19 17:13 | P.PN_ITS ---
Subjective Subjective: Interval history: Hospital course, labs appreciated. Patient presents sitting up in bed. Comfortable. Currently on 4 L oxygen supplementation saturating 97%. Denies any nausea vomiting, headache. States he has been taking his medications for LTBI. Denies any new medications or changes in medication for psoriatic arthritis. Denies any night sweats, loss of body weight, loss of appetite. Vitals/I&O/Wt Last Vital Signs Temp 97.7 F 02/19/21 15:48 Pulse 75 02/19/21 15:48 Resp 18 02/19/21 15:48 BP 108/71 02/19/21 15:48 Pulse Ox 99 02/19/21 15:48 02/19/21 02/19/21 02/19/21 06:59 14:59 22:59 Intake Total 480 / 530 240 / 240 Output Total 1100 / 1100 Balance -620 / -570 240 / 240 Weight last 48 hrs Weight 88.632 kg Weight 88.451 kg Physical Exam Narrative: EXAM NARRATIVE: General: No acute distress, AO x3 HEENT: PERRLA, pupils bilaterally equal and reactive Chest: Bronchial breath sounds bilaterally, decreased air entry right upper zone, rhonchi right upper zone,equal good air entry bilaterally CVS: S1-S2 regular, no murmurs, no tachycardia, no gallops, no rubs Abdomen: Soft, nontender, no organomegaly, bowel sounds present Neuro: No focal deficits, no facial deformity, AO x3, power 5/5 in all limbs Data : 02/19/21 05:54 02/19/21 05:54 Micro: Microbiology 02/19/21 04:35 Legionella Urinary Antigen - Final Unknown Source 02/19/21 04:35 Bacterial Antigens - Final Urine,Voided 02/18/21 15:00 Gram Stain - Final Sputum - Expectorated Sputum Sputum Culture - Preliminary 02/18/21 05:00 Blood Culture - Preliminary Blood NEGATIVE TO DATE 02/18/21 04:45 Blood Culture - Preliminary Blood NEGATIVE TO DATE A&P Assessment and plan (1) Hypoxia: Most likely because of COPD exacerbation from viral bronchitis. COVID-19 PCR, flu negative. Less likely patient having atypical pneumonia as patient has not on any immunological or immunomodulator. Already on treatment with LTBI. Check urine Legionella bacterial antigen. Sputum cultures so far normal robert. Start patient on levofloxacin 500 mg daily. DuoNebs every 4 hour, budesonide twice daily. Wean Solu-Medrol to 40 mg every 12 hourly. Check MRSA swab. Status: Acute (2) COPD exacerbation: Most likely undiagnosed COPD. CT appreciated for COPD changes. Treatment as above. We will follow-up investigations for atypical and fungal pneumonia. Reports his PCP was not sure he has COPD, although has not had PFT in years, previously was diagnosed with COPD by someone. Discussed with him he will need PFT after recovers from acute condition. Encourage smoking cessation. Status: Acute (3) Smoking addiction: Discussed with him extensively smoking cessation. Discussed he already has history of coronary artery stenting, CAD, and with psoriasis discussed with him significantly increased risk of CAD, cardiovascular events compared to general population. Encouraged him strongly to quit smoking. He verbalized understanding, states he intends not to smoke any further. We will provide nicotine replacement as needed. Continue to encourage cessation. Status: Acute (4) Latent tuberculosis by blood test: Continue treatment. Last day of treatment on , 02/22/2021. Kwaku ws up with ID clinic. Status: Acute Additional A&P Information Psoriasis: Pending initiation of additional treatment after completes treatment of latent tuberculosis. CAD Migraine with aura HTN HLD GERD Other chronic conditions noted Attestations Medical Necessity Statement*: Requires further hospitalization for management of hypoxia secondary COPD exacerbation while COVID-19 is ruled out. Time Spent in Patient Care: Greater than 35 minutes (>than 50% of time spent in counselling and/or direct pt care on unit) . Coding Level of Care Code Acute Bush Regenerator for [facility] Diagnoses Hypoxia R09.02 COPD exacerbation J44.1 Smoking addiction F17.200 Latent tuberculosis by blood test Z22.7
[2021-02-19 18:05] LABS: C Reactive Protein 23.7 mg/L (0.0-4.9)
[2021-02-20] VITALS (10 sets, daily range): BP systolic 105–148; BP diastolic 64–85; PULSE 74–79; RESP 16–18; TEMP 36.6–36.7; O2SAT 91–98
[2021-02-20] MEDS: ipratropium-albuterol 3 mL Neb INHALATION ×2 (02:23→09:31)
[2021-02-20 05:58] LABS: Hematocrit 35.3 % (42.0-52.0); Hemoglobin 11.9 g/dL (11.7-16.6); Lymphocytes # 0.8 10^3/uL (0.8-4.8); Mean Corpuscular HGB Conc 33.7 g/dL (30.0-36.0); Mean Corpuscular Hemoglobin 31.6 pg (28.0-34.0); Mean Corpuscular Volume 93.9 fl (80-94); Mean Platelet Volume 10.7 fL (7.4-10.4); Monocytes # 0.5 10^3/uL (0.2-0.9); Neutrophils # 2.71 10^3/uL (1.8-7.7); Neutrophils % 67.7 %; Nucleated Red Blood Cells % 0 %; Platelet Count 118 10^3/cmm (130-400); Red Blood Count 3.76 10^6/uL (4.1-5.3); Red Cell Distribution Width 13.1 % (12.1-15.1)
[2021-02-20] MEDS: levoFLOXacin 500 mg Tablet PO (06:04)
[2021-02-20 06:24] LABS: Alanine Aminotransferase 20 U/L (0-41); Albumin Level 4.2 g/dL (3.5-5.2); Alkaline Phosphatase 108 IU/L (40-130); Anion Gap 16.3 (5-19); Aspartate Amino Transferase 54 U/L (0-40); Blood Urea Nitrogen 21 mg/dL (8-23); Calcium 8.8 mg/dL (8.5-10.5); Carbon Dioxide 23 mmol/L (22-29); Chloride 93 mmol/L (98-107); Globulin 2.5 g/dL (1.3-4.6); Glomerular Filtration Rate 98.6 mL/min (90-130); Glucose 113 mg/dL (65-115); Osmolality Calculated 272 mOsm/kg (285-295); Potassium 3.3 mmol/L (3.5-5.1); Sodium 129 mmol/L (136-145); Total Bilirubin 0.2 mg/dL (0.15-1.2); Total Protein 6.7 g/dL (6.6-8.7)
[2021-02-20] MEDS: clopidogrel 75 mg Tablet PO (07:59)
[2021-02-20] MEDS: cyanocobalamin 1,000 mcg Tablet 500 MCG PO (07:59)
[2021-02-20] MEDS: gemfibrozil 600 mg Tablet PO (07:59)
[2021-02-20] MEDS: sertraline 50 mg Tablet PO (08:00)
[2021-02-20] MEDS: propranolol 20 mg Tablet PO (08:00)
[2021-02-20] MEDS: famotidine 20 mg Tablet PO (08:00)
[2021-02-20] MEDS: lisinopril 10 mg Tablet PO (08:00)
[2021-02-20] MEDS: budesonide 0.5 mg/2 mL Neb INHALATION (09:31)
--- NOTE | 2021-02-20 10:51 | PM.DCS ---
Discharge Providers Date of Admission: 02/18/21 08:39 Date of Discharge: February 20, 2021 Attending Provider at Admission: Randy Bush Attending Provider at Discharge: Ralph Mccall MD Primary Care Provider: Itzel Navarro NP Diagnoses at Discharge Discharge Diagnosis (1) Hypoxia: Status: Acute (2) COPD exacerbation: Status: Acute (3) Smoking addiction: Status: Acute (4) Latent tuberculosis by blood test: Status: Acute Reason for Visit Reason for Visit: SOB Hospital Course Hospital Course Mickey Woods, 60-year-old pleasant gentleman with past medical history of psoriasis, arthritis, latent tuberculosis under treatment, ESRD, hypertension, possible diagnosis of COPD though undiagnosed, current smoker came to the ER on February 18 with progressive dyspnea for 3 to 4 days, wheezing and cough with clear sputum production without any loss of weight, night sweats, hemoptysis. Patient admitted to hospital for further management of acute hypoxia. CTA was done which ruled out pulmonary embolism or any active consolidation other than possible consolidation versus reactive airway disease in the right upper lobe with possible changes of chronic obstructive disease. COVID-19 was ruled out. It was confirmed that patient has not started any new medications or steroid. For possible atypical/fungal pneumonia work-up was sent out and is pending. His outpatient treatment of latent tuberculosis was continued. Patient was started on nebulization treatment and IV steroids which were weaned down. It is believed patient had COPD exacerbation secondary to viral bronchitis. He is been discharged in hemodynamically stable condition with advised to follow-up with pulmonology and pulmonary function tests for undiagnosed COPD, continue to follow-up with his ID clinic and primary care provider. Home O2 evaluation has been done prior to discharge. Patient was encouraged in detail to quit smoking as much as possible. Physical Exam Narrative: EXAM NARRATIVE: General: No acute distress, AO x3 HEENT: PERRLA, pupils bilaterally equal and reactive Chest: Bronchial breath sounds bilaterally, decreased air entry right upper zone, rhonchi right upper zone,equal good air entry bilaterally CVS: S1-S2 regular, no murmurs, no tachycardia, no gallops, no rubs Abdomen: Soft, nontender, no organomegaly, bowel sounds present Neuro: No focal deficits, no facial deformity, AO x3, power 5/5 in all limbs Discharge Data Data Completed and Pending: Completed Studies During Hospitalization Category Date Time Status CT angio chest PE protcl [id number] Urge nt Cat Scan 02/18/21 06:00 Completed XR chest 1V patricia ble [id number] Routine Exams 02/19/21 06:00 Completed XR chest 1V patricia ble [id number] Urgent Exams 02/18/21 04:29 Completed Pending at discharge Category Date Time Status Aspergillus AG,EI A,Serum Routine Lab 02/19/21 05:54 Received Blood Culture Sta t Lab 02/18/21 05:00 Results Complete Blood Co unt w/Auto AM LABS Lab 02/21/21 04:00 Ordered Comprehensive Met abolic Panel AM LA BS Lab 02/21/21 04:00 Ordered Erythrocyte Sedim entation Rate Rout ine Lab 02/20/21 05:20 Received Fungitell Glucan Assay Routine Lab 02/18/21 04:00 Received MRSA by PCR Routi ne Lab 02/19/21 15:56 Received Pneumocystis jiro veci Qual PCR Rout ine Lab 02/18/21 15:00 Received Labs from last 24 hours 02/20/21 02/20/21 02/20/21 05:20 05:20 05:20 WBC 4.0 RBC 3.76 L Hgb 11.9 Hct 35.3 L MCV 93.9 MCH 31.6 MCHC 33.7 RDW 13.1 Plt Count 118 L MPV 10.7 H Neut % (Auto) 67.7 Lymph % (Auto) 19.0 Mcdonough % (Auto) 13.0 Eos % (Auto) 0.0 Baso % (Auto) 0.0 Neut # (Auto) 2.71 Lymph # (Auto) 0.8 Mcdonough # (Auto) 0.5 Eos # (Auto) 0.0 Baso # (Auto) 0.0 Nucleated RBC % (a uto) 0 Nucleated RBCs # 0.0 ESR Pending Sodium 129 L Potassium 3.3 L Chloride 93 L Carbon Dioxide 23 Anion Gap 16.3 BUN 21 Creatinine 0.8 GFR Calculation 98.6 Glucose 113 Calculated Osmolal ity 272 L Calcium 8.8 Total Bilirubin 0.2 AST 54 H ALT 20 Alkaline Phosphata se 108 C-Reactive Protein Total Protein 6.7 Albumin 4.2 Globulin 2.5 Nasal/Oral COVID-1 9 PCR 02/19/21 02/18/21 05:54 09:03 WBC RBC Hgb Hct MCV MCH MCHC RDW Plt Count MPV Neut % (Auto) Lymph % (Auto) Mcdonough % (Auto) Eos % (Auto) Baso % (Auto) Neut # (Auto) Lymph # (Auto) Mcdonough # (Auto) Eos # (Auto) Baso # (Auto) Nucleated RBC % (a uto) Nucleated RBCs # ESR Sodium Potassium Chloride Carbon Dioxide Anion Gap BUN Creatinine GFR Calculation Glucose Calculated Osmolal ity Calcium Total Bilirubin AST ALT Alkaline Phosphata se C-Reactive Protein 23.7 H Total Protein Albumin Globulin Nasal/Oral COVID-1 9 PCR Not detected Addt'l Data from Hospital Stay: Laboratory Results WBC 4.0 10^3/uL (4.0- 10.0) 02/20/21 05:20 RBC 3.76 10^6/uL (4.1 -5.3) L 02/20/21 05:20 Hgb 11.9 g/dL (11.7-1 6.6) 02/20/21 05:20 Hct 35.3 % (42.0-52.0 ) L 02/20/21 05:20 MCV 93.9 fl (80-94) 02/20/21 05:20 MCH 31.6 pg (28.0-34. 0) 02/20/21 05:20 MCHC 33.7 g/dL (30.0-3 6.0) 02/20/21 05:20 RDW 13.1 % (12.1-15.1 ) 02/20/21 05:20 Plt Count 118 10^3/cmm (130 -400) L 02/20/21 05:20 MPV 10.7 fL (7.4-10.4 ) H 02/20/21 05:20 Neut % (Auto) 67.7 % 02/20/21 05:20 Lymph % (Auto) 19.0 % 02/20/21 05:20 Mcdonough % (Auto) 13.0 % 02/20/21 05:20 Eos % (Auto) 0.0 % 02/20/21 05:20 Baso % (Auto) 0.0 % 02/20/21 05:20 Neut # (Auto) 2.71 10^3/uL (1.8 -7.7) 02/20/21 05:20 Lymph # (Auto) 0.8 10^3/uL (0.8- 4.8) 02/20/21 05:20 Mcdonough # (Auto) 0.5 10^3/uL (0.2- 0.9) 02/20/21 05:20 Eos # (Auto) 0.0 10^3/uL (0.0- 0.8) 02/20/21 05:20 Baso # (Auto) 0.0 10^3/uL (0.0- 0.1) 02/20/21 05:20 Nucleated RBC % (a uto) 0 % 02/20/21 05:20 Nucleated RBCs # 0.0 /100WBC 02/20/21 05:20 D-Dimer 0.33 ug/mIFEU (0- 0.59) 02/18/21 04:00 Specimen Type Arterial 02/18/21 04:29 Sample Site Radial, right 02/18/21 04:29 ABG pH 7.36 (7.35-7.45) 02/18/21 04:29 ABG pCO2 30.7 mmHg (35-45) L 02/18/21 04:29 ABG pO2 103.0 mmHg (80.0- 100.0) H 02/18/21 04:29 ABG HCO3 17.2 mmol/L (22-2 6) L 02/18/21 04:29 ABG Base Excess -7.1 mmol/L (-2.0 -2.0) L 02/18/21 04:29 Nicholas Test Pos 02/18/21 04:29 Hematocrit 43.7 % (42-52) 02/18/21 04:29 Hgb O2 Saturation 95.8 % (95-100) 02/18/21 04:29 Carboxyhemoglobin 1.3 %THgb (0.4-20 .1) 02/18/21 04:29 Methemoglobin 0.9 % (0.4-1.5) 02/18/21 04:29 Total Hemoglobin 14.3 g/dL (14-18) 02/18/21 04:29 O2 Delivery Device Nc 02/18/21 04:29 O2 Liters/Min 3.0 % 02/18/21 04:29 Director Of Individual Giving ID [email or web address] 02/18/21 04:29 Sodium 129 mmol/L (136-1 45) L 02/20/21 05:20 Potassium 3.3 mmol/L (3.5-5 .1) L 02/20/21 05:20 Chloride 93 mmol/L (98-107 ) L 02/20/21 05:20 Carbon Dioxide 23 mmol/L (22-29) 02/20/21 05:20 Anion Gap 16.3 (5-19) 02/20/21 05:20 BUN 21 mg/dL (8-23) 02/20/21 05:20 Creatinine 0.8 mg/dL (0.7-1. 2) 02/20/21 05:20 GFR Calculation 98.6 mL/min (90-1 30) 02/20/21 05:20 Glucose 113 mg/dL (65-115 ) 02/20/21 05:20 Calculated Osmolal ity 272 mOsm/kg (285- 295) L 02/20/21 05:20 Lactic Acid 0.7 mmol/L (0.5-2 .2) 02/18/21 04:00 Calcium 8.8 mg/dL (8.5-10 .5) 02/20/21 05:20 Total Bilirubin 0.2 mg/dL (0.15-1 .2) 02/20/21 05:20 AST 54 U/L (0-40) H 02/20/21 05:20 ALT 20 U/L (0-41) 02/20/21 05:20 Alkaline Phosphata se 108 IU/L (40-130) 02/20/21 05:20 Troponin T Baselin e 8 ng/L (0-15) 02/18/21 04:00 Troponin T 120 Min [place] 9.21 ng/L (0-15) 02/18/21 06:41 Delta Troponin T 1.21 ABS# (0-10) 02/18/21 06:41 Troponin T Hi Sens 6Hr 8.11 ng/L (0-15) 02/18/21 10:50 Troponin T Hi Sens 6Hr Delta 0.11 ng/L (0-12) 02/18/21 10:50 C-Reactive Protein 23.7 mg/L (0.0-4. 9) H 02/19/21 05:54 NT-Pro-B Natriuret Pep 196 pg/mL (0-125) H 02/18/21 04:00 Total Protein 6.7 g/dL (6.6-8.7 ) 02/20/21 05:20 Albumin 4.2 g/dL (3.5-5.2 ) 02/20/21 05:20 Globulin 2.5 g/dL (1.3-4.6 ) 02/20/21 05:20 Urine Color Yellow (Yellow) 02/18/21 04:30 Urine Appearance Clear (CLEAR) 02/18/21 04:30 Urine pH 5 (5-7) 02/18/21 04:30 Ur Specific Gravit y 1.020 (1.005-1.0 30) 02/18/21 04:30 Urine Protein 1+ (Negative) H 02/18/21 04:30 Urine Glucose (UA) Norm (Normal) 02/18/21 04:30 Urine Ketones 1+ (Negative) H 02/18/21 04:30 Urine Blood Neg (Negative) 02/18/21 04:30 Urine Nitrate Negative (Negati ve) 02/18/21 04:30 Urine Bilirubin 1+ (Negative) H 02/18/21 04:30 Urine Urobilinogen 1 mg/dL (Negative ) H 02/18/21 04:30 Ur Leukocyte [place] ase Negative (Negati ve) 02/18/21 04:30 Urine RBC 0-4 /hpf (0-2) H 02/18/21 04:30 Urine WBC 0-4 /hpf (0-5) H 02/18/21 04:30 Ur Squamous Epith Cells 0-4 /hpf (0-5) H 02/18/21 04:30 Triple Phos Vidhi ls 0-4 /hpf H 02/18/21 04:30 Amorphous Sediment Not Reportable 02/18/21 04:30 Urine Bacteria Trace /hpf (NONE) 02/18/21 04:30 Coarse Granular Ca sts T /lpf 02/18/21 04:30 Urine Mucus Trace /hpf 02/18/21 04:30 Nasal/Oral COVID-1 9 PCR Not detected 02/18/21 09:03 Influenza Type A A g Negative (Negati ve) 02/18/21 12:50 Influenza Type B A g Negative (Negati ve) 02/18/21 12:50 Pneumocystis Sourc e Cancelled 02/18/21 15:00 Pneumocyst jirovec i PCR Cancelled 02/18/21 15:00 SARS-CoV-2 Ag (Rap id) Negative (Negati ve) 02/18/21 04:15 Misc Test Referenc e Cancelled 02/19/21 05:54 Impressions Chest CTA 02/18/21 06:00 IMPRESSION: 1. No evidence of pulmonary embolism to the segmental level. The peripheral arterial branches within the lung bases are incompletely evaluated due to motion and subsegmental emboli are not entirely excluded. 2. Subtle centrilobular ground-glass opacities noted bilaterally but primarily within the anterior segment of the right upper lobe, consistent with mild nonspecific infectious or inflammatory airways process. No lobar consolidation. Radiation Dose CTDIVOL = (mGy): DLP = 1132.31 (mGy-cm) Chest X-Ray 02/19/21 06:00 IMPRESSION: No acute chest abnormality. Vitals: Last Vital Signs Temp 97.9 F 02/20/21 08:00 Pulse 75 02/20/21 09:38 Resp 17 02/20/21 09:38 BP 127/77 02/20/21 08:00 Pulse Ox 95 02/20/21 09:38 Discharge Plan Discharge Patient Disposition: Home Condition: Stable Prescriptions: New levofloxacin 500 mg Tablet 500 mg PO DAILY@0600 3 Days Qty: 3 RF: 0 Advair HFA 115-21 mcg/actuation HFA aerosol inhaler 2 inh inhalation Q12H Qty: 12 RF: 0 Spiriva with HandiHaler 18 mcg capsule, w/inhalation device 1 cap inhalation DAILY Qty: 60 RF: 0 prednisone 10 mg tablet See Taper mg PO DAILY Qty: 42 RF: 0 Continued ondansetron HCl [Zofran] 4 mg tablet 4 mg PO Q8H PRN (Reason: nausea and vomiting) Qty: 14 RF: 0 propranolol 20 mg tablet 20 mg PO DAILY RF: 0 bupropion HCl 100 mg tablet 50 mg PO BID Qty: 90 RF: 0 diphenhydramine-acetaminophen [Tylenol PM Extra Strength] 25-500 mg tablet 1 tab PO .COMPLEX PRN (Reason: sleep) RF: 0 famotidine 20 mg tablet 20 mg PO BID PRN (Reason: gastritis) Qty: 30 RF: 1 sertraline 50 mg tablet See Rx Instructions .ROUTE .COMPLEX Qty: 60 RF: 11 nitroglycerin 0.4 mg tablet, sublingual 0.4 mg SUBLINGUAL Q5M PRN (Reason: chest pain) Qty: 25 RF: 5 rosuvastatin 20 mg tablet 20 mg PO DAILY Qty: 30 RF: 5 sumatriptan succinate 100 mg tablet See Rx Instructions .ROUTE .COMPLEX Qty: 90 RF: 3 Plavix 75 mg Tablet 75 mg PO DAILY RF: 0 Vitamin B-12 25 mcg Tablet 500 mcg PO DAILY RF: 0 rifapentine 150 mg tablet 900 mg PO Q7D RF: 0 isoniazid 300 mg tablet 900 mg PO Q7D RF: 0 gemfibrozil 600 mg tablet 600 mg PO BID RF: 0 lisinopril 10 mg tablet 10 mg PO DAILY RF: 0 Discharge Orders: Discharge Order (Routine); Ordered 02/20/21 Ordered By: Ralph Mccall Other Ambulatory Orders: Pulmonary Function Screen with Bronchodilator (Routine) Timeframe: 1 Week Facility: [facility] - Location: Respiratory Therapy Ordered By: Ralph Mccall Referrals: Damon Moura MD [Physician] - 2 weeks Itzel Navarro NP [Primary Care Provider] - 1 week Discharge Diet: Cardiac Discharge Activity: Resume usual activity Patient Instructions: Opioid Safety Activity Restrictions/Additional Instructions: Please continue take prednisone taper as prescribed in detail. Advair and Spiriva all been relation treatment. Levofloxacin is the antibiotic for 3 more days. Please follow-up with pulmonology within next 2 weeks on set appointment. Please follow-up with pulmonary function test on set appointment. Please try to stop smoking as discussed in detail. Discharge Attestations Time Spent in Discharge Care*: greater than 30 min Specific Discharge Activities: educating patient, discussing with pcp/other providers, discussing with case management social worker/social workers/dc planners, documenting/other paperwork and evaluating patient/reviewing data Status at Discharge: Cognitive status at discharge: cognitively intact, Behavioral status at discharge: cooperative, Functional status at discharge: uses cane/walker Overall status at discharge: patient is progressing back to baseline Quality Metrics Clinical Quality Measures During this hospital stay, did patient experience: None Coding Level of Care Code Acute g FW DC note Diagnoses Hypoxia R09.02 COPD exacerbation J44.1 Smoking addiction F17.200 Latent tuberculosis by blood test Z22.7
--- NOTE | 2021-02-21 11:49 | PC.SOCIAL ---
discharge follow up call made. spoke with patient. patient continues to have a cough, will discuss with his pcp about a cough suppressant at this appointment. patient hasn't picked up new prescriptions from the pharmacy but plans too today. discussed with patient the importance of the steriod and antibiotic. patient verbalized understanding of teaching. patient did get his walker but the commode and shower chair weren't covered by insurance, talked with patient about getting those pieces of equipment used, he is going to look in to finding. patient is aware of follow up appointment dates and times and will arrange transportation. patient denies questions or concerns.
[2021-02-21 13:28] LABS: Erythrocyte Sedimentation Rate 17 mm/hr (0-10)
[2021-02-22 21:08] LABS: Fungitell 1-3-B Glucan Assay 38 pg/mL; Interpretation NEGATIVE
[2021-02-23 19:38] LABS: Aspergillus AG,EIA,Serum NOT DETECTED; Aspergillus Galactomannan Inde <0.50
[2021-02-27 08:33] LABS: P. Jirovecii DNA QL PCR NOT DETECTED; P. Jirovecii DNA QL PCR Source SPUTUM
== END 2021-02-20 14:36 | disposition home or self-care (01) | DRG 190 ==
LOC: ER 07:55 → MEDSURG 09:00
PROVIDERS: Emergency Medicine; Admitting Provider Internal Medicine; Emergency Provider Emergency Medicine; PCP Nurse Practitioner Family; Visit Provider Student in an Organized Health Care Education/Training Program
DX: J44.0 Chronic obstructive pulmonary disease with (acute) lower respiratory infection (principal); N18.6 End stage renal disease; F33.9 Major depressive disorder, recurrent, unspecified; D84.821 Immunodeficiency due to drugs; I12.0 Hypertensive chronic kidney disease with stage 5 chronic kidney disease or end stage renal disease; J20.9 Acute bronchitis, unspecified; J44.1 Chronic obstructive pulmonary disease with (acute) exacerbation; Z22.7 Latent tuberculosis; Z79.899 Other long term (current) drug therapy; K21.9 Gastro-esophageal reflux disease without esophagitis; E78.5 Hyperlipidemia, unspecified; E78.1 Pure hyperglyceridemia; R91.8 Other nonspecific abnormal finding of lung field; F43.12 Post-traumatic stress disorder, chronic; I25.10 Atherosclerotic heart disease of native coronary artery without angina pectoris; Z95.5 Presence of coronary angioplasty implant and graft; L40.50 Arthropathic psoriasis, unspecified; F17.210 Nicotine dependence, cigarettes, uncomplicated; Z79.02 Long term (current) use of antithrombotics/antiplatelets
CPT/HCPCS: 36415; 36600; 71045; 71275; 80053; 81001; 82805; 83605; 83880; 84484; 85025; 85378; 85651; 86140; 86403; 87040; 87070; 87205; 87305; 87426; 87449; 87635; 87641; 87798; 87804; 93005; 94640; 94664; 96365; 96372; 96375; 99285; J1650; J2270; J2405; J2920; J2930; J3475; J3535; J7626; Q9967

== ENCOUNTER → 2021-03-20 09:01 | Outpatient (BNVA) | payer MEDICARE, SELFPAY | PROVIDERS: PCP Nurse Practitioner Family; Visit Provider Internal Medicine | DX: Z01.812 Encounter for preprocedural laboratory examination (principal); K92.1 Melena; Z20.822 Contact with and (suspected) exposure to COVID-19 | CPT/HCPCS: 87635 ==

== ENCOUNTER 2021-03-26 05:58 | Day surgery (SDC) | payer MEDICARE, SELFPAY ==
[2021-03-22 15:02] VITALS: BMI 25.7
[2021-03-26 06:32] VITALS: BP 118/84; PULSE 80; RESP 18; TEMP 36.3; O2SAT 99
[2021-03-26] MEDS: sodium chloride 0.9% 1,000 ML 30 ML IV (06:37)
--- NOTE | 2021-03-26 06:51 | ANES.PREANE2 ---
Pre-Anesthetic Assessment Pre-Anesthetic Assessment: Height/Weight: Height 1.88 m Weight 90.718 kg Temp Pulse Resp BP Pulse Ox 97.4 F L 80 18 118/84 99 03/26/21 06:32 03/26/21 06:32 03/26/21 06:32 03/26/21 06:32 03/26/21 06:32 Preop Diagnosis: hematochezia Proposed Procedure: Operation Date: 03/26/21 07:30 Proposed Procedures p Colonoscopy 60298 K92.1(Not Applicable) - Ray Louise MD Familial anesthetic complications: none Was Beta Shandra taken within 24 hours: Yes Was Clonidine taken within 24 hours: N/A Last intake: Intake Last Liquid Date 03/25/21 Last Liquid Time 23:00 Last Solid Date 03/24/21 Last Solid Time 19:00 Last Intake: 23:00 Social: Social History: Alcohol (12pk week) and Tobacco Packs per day: 1ppd Pack years: 10+ Exam: Pre-Anes Outpt Exam: alert, oriented x 3, clear to auscultation bilaterally and regular rate & rhythm Airway: Submandibular: WNL Cervical ROM: WNL MP: 2 Dentition: Chipped (front upper) Pulmonary: Pulmonary: COPD and Cough (pneumonia last month) CV/HEM: CV/HEM: CAD (PTCA x 3 last stent 3 months ago. No CP/SOB since stent), HTN, OK and None reported : : None reported Hepatic: Hepatic: None reported GI: GI: None reported Metabolic: Metabolic: None reported Musc/skel: Musc/skel: Lower Back Pain Neuropsych: Neuropsych: GOMEZ and None reported Anesthetic Plan: ASA status: 3 Anesthesia: MAC Meds/Allergies Current Medications: Current Medications Generic Name Dose Route Start Last Admin Trade Name Freq PRN Reason Stop Dose Admin Sodium Chloride 1,000 mls @ 30 ml s/hr 03/26/21 06:15 03/26/21 06:37 Sodium Chloride 0.9% IV 30 mls/hr .Q24H CARL Administration PFSH Anesthesia PFSH: Medical History COPD (chronic obstructive pulmonary disease) Depression Enrolled in chronic care management Essential hypertension GERD (gastroesophageal reflux disease) High risk medication use Hyperlipidemia Hypertriglyceridemia Latent tuberculosis by blood test Lesion of chest Lung nodules Migraine with aura and without status migrainosus, not intractable Moderate episode of recurrent major 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 Post-traumatic stress disorder, chronic F43.12 Psychiatric care Smoking addiction Surgical History History of cataract extraction BILATERAL History of laminectomy Hx of heart artery stent Family History Other Adopted Social History Smoking and tobacco status: former smoker Quit status (tobacco): has quit using tobacco Year quit tobacco: 2020 Former quit date comment: Hx of 0.5 PPD x 8 Years Second hand smoke exposure: Yes Smoking risk assessment/counseling performed?: No Alcohol intake: current Alcohol intake frequency: holidays/special occasions only Alcohol type: beer Counseling given: No Counseling given: No Lives independently: Yes Household members: none Marital status: Current occupational status: disabled History of recent travel: No Current gender identity: Male Data Anesthesia Cardiac Studies: No Data to Display
--- NOTE | 2021-03-26 07:21 | P.HP_ITS ---
Same Day Surgery H&P Indication for Procedure/HPI DATE OF PROCEDURE: March 26, 2021 CHIEF COMPLAINT/INDICATIONFOR SURGICAL PROCEDURE: Screening PREOP DIAGNOSIS: hematochezia PLANNED PROCEDRUE: Operation Date: 03/26/21 07:00 Proposed Procedures p Colonoscopy 79149 K92.1(Not Applicable) - Ray Louise MD Medications/Allergies* Home Medications Medication Instructions Recorded Confirmed Type clopidogrel [Plavix] 75 mg PO DAILY 02/18/21 03/22/21 History cyanocobalamin (vitamin B-12) 500 mcg PO DAILY 02/18/21 03/22/21 History gemfibrozil 600 mg PO BID 02/18/21 03/22/21 History lisinopril 10 mg PO DAILY 02/18/21 03/22/21 History propranolol 20 mg PO BEDTIME 03/26/21 03/26/21 History sertraline 50 mg PO BID 03/26/21 03/26/21 History tiotropium bromide [Spiriva with 2 cap INHALATION DAILY PRN 03/26/21 03/26/21 History HandiHaler] Allergies/Adverse Reactions Allergy/AdvReac Type Severity Reaction Status Date / Time No Known Allergies Allergy Verified 03/15/21 08:56 Current Medications: Generic Name Dose Route Start Last Admin Trade Name Freq PRN Reason Stop Dose Admin Sodium Chloride 1,000 mls @ 30 mls/hr 03/26/21 06:15 03/26/21 06:37 Sodium Chloride 0.9% IV 30 mls/hr .Q24H CARL Administration Pertinent History/Comorbid Conditions* Medical History COPD (chronic obstructive pulmonary disease) Depression Enrolled in chronic care management Essential hypertension GERD (gastroesophageal reflux disease) High risk medication use Hyperlipidemia Hypertriglyceridemia Latent tuberculosis by blood test Lesion of chest Lung nodules Migraine with aura and without status migrainosus, not intractable Moderate episode of recurrent major 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 Post-traumatic stress disorder, chronic F43.12 Psychiatric care Smoking addiction Surgical History (Updated 05/26/19 @ 14:44 by Itzel Navarro NP) History of cataract extraction BILATERAL History of laminectomy Hx of heart artery stent Family History (Updated 02/18/21 @ 12:32 by Randy Bush MD) Adopted Social History Smoking and tobacco status: former smoker Quit status (tobacco): has quit using tobacco Year quit tobacco: 2020 Former quit date comment: Hx of 0.5 PPD x 8 Years Second hand smoke exposure: Yes Smoking risk assessment/counseling performed?: No Alcohol intake: current Alcohol intake frequency: holidays/special occasions only Alcohol type: beer Counseling given: No Counseling given: No Lives independently: Yes Household members: none Marital status: Current occupational status: disabled History of recent travel: No Current gender identity: Male Pertinent Exam Findings alert, oriented x 3, clear to auscultation bilaterally, regular rate & rhythm, operative site marked and procedure specific exam findings Recommendations Surgery/Procedure today Coding Level of Care Code Acute Contracting Officer for Isha Calvo
[2021-03-26 07:35] VITALS: BP 110/81; PULSE 71; RESP 16; TEMP 36.1; O2SAT 96
[2021-03-26 07:45] VITALS: BP 98/59; PULSE 78; RESP 18; O2SAT 100
--- NOTE | 2021-03-26 13:42 | ANE.PACU2 ---
Inpatient post-anesthesia follow up: Airway intact: Yes Vital signs: Temperature 97.0 F Pulse Rate 78 Respiratory Rate 18 Blood Pressure 98/59 Pulse Oximetry 100 Oxygen Delivery Me thod Room Air Oxygen Flow Rate Fraction of Inspir ed Oxygen Hydration adequate: Yes Nausea and vomiting: No Pain level: 2 Mental status: Baseline
== END 2021-03-26 08:06 | disposition home or self-care (01) ==
PROVIDERS: PCP Nurse Practitioner Family; Visit Provider Internal Medicine
PROC: 0DJD8ZZ Inspection of Lower Intestinal Tract, Via Natural or Artificial Opening Endoscopic (ICD-10-PCS; CPT 45378; principal; 2021-03-26 07:00)
DX: Z12.11 Encounter for screening for malignant neoplasm of colon (principal); J44.9 Chronic obstructive pulmonary disease, unspecified; I25.10 Atherosclerotic heart disease of native coronary artery without angina pectoris; I10 Essential (primary) hypertension; E78.5 Hyperlipidemia, unspecified; E78.1 Pure hyperglyceridemia; Z79.02 Long term (current) use of antithrombotics/antiplatelets; Z87.891 Personal history of nicotine dependence; Z95.5 Presence of coronary angioplasty implant and graft; I25.2 Old myocardial infarction
CPT/HCPCS: 96360; G0121; J2704; J7030

== ENCOUNTER → 2021-03-30 09:01 | Outpatient (BNVA) | payer MEDICARE, SELFPAY | PROVIDERS: PCP Nurse Practitioner Family; Visit Provider Internal Medicine Critical Care Medicine | DX: Z01.812 Encounter for preprocedural laboratory examination (principal); Z20.822 Contact with and (suspected) exposure to COVID-19; K92.1 Melena | CPT/HCPCS: 87635 ==

== ENCOUNTER 2021-04-06 08:42 | Outpatient (CLI) | payer MEDICARE, SELFPAY ==
--- NOTE | 2021-04-06 13:29 | PFTS_ITS ---
Date of Study:04/06/21 Date of Dictation: MECHANICS: Forced vital capacity (FVC) is normal. Forced expiratory volume in one second (FEV1) is reduced. FEV1/FVC is reduced. FLOW VOLUME LOOP: Scooping present. LUNG VOLUMES: Total lung capacity (TLC) is normal. Residual volume (RV) is increased. DIFFUSING CAPACITY FOR CARBON MONOXIDE: Moderately reduced. INTERPRETATION: The prebronchodilator spirometry is consistent with moderate airflow obstruction. No postbronchodilator spirometry was performed. Lung volumes are consistent with air trapping. Gas exchange (DLCO) is moderately reduced. MTDD
== END 2021-04-06 08:43 | disposition home or self-care (01) ==
LOC: RT 08:43
PROVIDERS: PCP Nurse Practitioner Family; Visit Provider Internal Medicine Critical Care Medicine
DX: R06.02 Shortness of breath (principal)
CPT/HCPCS: 94010; 94726; 94729

== ENCOUNTER → 2021-08-23 12:55 | Outpatient (BNVA) | payer MEDICARE, SELFPAY | PROVIDERS: PCP Nurse Practitioner Family; Visit Provider Nurse Practitioner Family | DX: F33.1 Major depressive disorder, recurrent, moderate (principal); I10 Essential (primary) hypertension; Z68.25 Body mass index [BMI] 25.0-25.9, adult; E78.2 Mixed hyperlipidemia; E78.1 Pure hyperglyceridemia | CPT/HCPCS: 80053; 80061; 83721; 84443 ==

== ENCOUNTER 2022-01-04 06:00 | Outpatient (RCR) | payer MEDICARE, SELFPAY | END 2022-01-16 23:59 | disposition home or self-care (01) | LOC: GPT 06:00 | PROVIDERS: PCP Nurse Practitioner Family; Visit Provider Nurse Practitioner Family | DX: M25.511 Pain in right shoulder (principal); G89.29 Other chronic pain; M25.611 Stiffness of right shoulder, not elsewhere classified | CPT/HCPCS: 97110; 97140; 97162 ==

== ENCOUNTER → 2022-02-20 11:55 | Outpatient (BNVA) | payer MEDICARE, SELFPAY | PROVIDERS: PCP Nurse Practitioner Family; Visit Provider Nurse Practitioner Family | DX: E78.2 Mixed hyperlipidemia (principal); F33.1 Major depressive disorder, recurrent, moderate; I10 Essential (primary) hypertension; E78.1 Pure hyperglyceridemia; Z68.25 Body mass index [BMI] 25.0-25.9, adult | CPT/HCPCS: 80053; 80061; 83721 ==

== ENCOUNTER 2022-04-05 09:53 | Outpatient (CLI) | payer MEDICARE, SELFPAY ==
--- NOTE | 2022-04-05 10:30 | CT_ITS ---
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 Coronal and sagittal reformats are submitted with axial MIP series. All CT scans at [facility] use at least one of these dose optimization techniques: automated exposure control; mA and/or kV adjustment per patient size (includes targeted exams where dose is matched to clinical indication); or iterativ e reconstruction. DLP: 86.57 mGy.cm DIvol: Mean CTDIvol: 1.60 (mGy) COMPARISON: 02/18/2021 Diagnostic quality: Satisfactory Lung Nodules: No pulmonary mass or nodule. No endobronchial lesions. Lungs: Mild chronic emphysema. Heart: Normal size heart. Extensive belkofski coronary artery calcifications. Other findings: Small hiatal hernia. CT/CT lung screening [id number] IMPRESSION: LUNG-RADS: 1-Negative FOLLOW UP: 12 Month: Continue annual screening with LDCT OTHER FINDINGS (S MODIFIER): None.
== END 2022-04-05 09:54 | disposition home or self-care (01) ==
PROVIDERS: PCP Nurse Practitioner Family; Visit Provider Nurse Practitioner Family
DX: Z12.2 Encounter for screening for malignant neoplasm of respiratory organs (principal); F17.211 Nicotine dependence, cigarettes, in remission
CPT/HCPCS: 71271

== ENCOUNTER → 2022-04-18 10:18 | Outpatient (BNVA) | payer MEDICARE, SELFPAY | PROVIDERS: PCP Nurse Practitioner Family; Visit Provider Nurse Practitioner Family | DX: M25.511 Pain in right shoulder (principal); G89.29 Other chronic pain | CPT/HCPCS: 73030 ==

== ENCOUNTER 2022-07-02 10:05 | Outpatient (CLI) | payer MEDICARE, SELFPAY ==
--- NOTE | 2022-07-02 10:15 | MR_ITS ---
WS: [id number] EXAMINATION: MR shoulder RT wo con* [id number] ORDER DATE: 07/02/2022 10:36 AM COMPARISON: None. HISTORY: M25.511 - Pain in right shoulder CONTRAST: None. TECHNIQUE: Axial T2 STAR, coronal proton density fat sat, sagittal T2 fat sat, sagittal proton densit y fat sat, axial proton density fat sat, coronal T2 fat sat, and coronal T1 performed. After contrast , axial T1 fat sat, coronal T1 fat sat, and sagittal T1 fat sat were performed. FINDINGS: Moderate degenerative arthritis at the AC joint with mild edema. Mild downsloping acromion. Slight courtney bacromial spurring. Slight impingement on the distal supraspinatus. Tendinopathy distal supraspinatus with mild chronic thinning. Tiny partial intrasubstance tear distal supraspinatus. Tiny tear at the supraspinatus insertion. Tiny tear at the infraspinatus insertion. Normal teres minor. Partial tear subscapularis tendon distally with laxity and thinning. Biceps tendo n absent from the bicipital groove. Subscapularis muscle belly is preserved. Degenerative fraying of the glenoid labrum. Normal bone marrow signal in the glenoid and humerus. T2 signal abnormality with intrasubstance tear and tendinopathy involving the intra-articular biceps tendon with edema. Enlargement and edema of the intra-articular biceps tendon. Signal abnormality ext ends to the biceps labral anchor. MR/MR shoulder RT wo con* [id number] IMPRESSION: 1. Moderate degenerative arthritis AC joint with mild edema. Mild downsloping acromion. Slight impingement on the distal supraspinatus. 2. Tendinopathy distal supraspinatus with tiny intrasubstance tear. Tiny inser tional tear supraspinatus and infraspinatus insertions. 3. Partial tear of the subscapularis tendon distally with laxity and retractio n. Fluid signal abnormality within the supraspinatus tendon. No significant atr ophy of the subscapularis muscle belly. 4. T2 signal abnormality with intrasubstance tear and tendinopathy involving t he intra-articular biceps tendon with edema. This extends to the biceps labral anchor. 5. Biceps tendon is absent from the bicipital groove. 6. Mild degenerative fraying of the glenoid labrum.
== END 2022-07-02 10:06 | disposition home or self-care (01) ==
PROVIDERS: PCP Nurse Practitioner Family; Visit Provider Nurse Practitioner Family
DX: G89.29 Other chronic pain (principal); M19.011 Primary osteoarthritis, right shoulder
CPT/HCPCS: 73221

== ENCOUNTER → 2022-07-26 08:33 | Outpatient (BNVA) | payer MEDICARE, SELFPAY | PROVIDERS: PCP Nurse Practitioner Family; Referring Provider Nurse Practitioner Family; Visit Provider Student in an Organized Health Care Education/Training Program | DX: M75.41 Impingement syndrome of right shoulder (principal); S46.219A Strain of muscle, fascia and tendon of other parts of biceps, unspecified arm, initial encounter; M75.101 Unspecified rotator cuff tear or rupture of right shoulder, not specified as traumatic; X50.9XXA Other and unspecified overexertion or strenuous movements or postures, initial encounter | CPT/HCPCS: 20610; 73030; 99204 ==

== ENCOUNTER → 2022-08-21 13:41 | Outpatient (BNVA) | payer MEDICARE, SELFPAY | PROVIDERS: PCP Nurse Practitioner Family; Visit Provider Nurse Practitioner Family | DX: E78.1 Pure hyperglyceridemia (principal); I10 Essential (primary) hypertension; F33.1 Major depressive disorder, recurrent, moderate; Z68.22 Body mass index [BMI] 22.0-22.9, adult; E78.2 Mixed hyperlipidemia | CPT/HCPCS: 80053; 80061; 83721; 84443 ==

== ENCOUNTER → 2022-08-26 11:49 | Outpatient (BNVA) | payer MEDICARE, SELFPAY | PROVIDERS: PCP Nurse Practitioner Family; Visit Provider Nurse Practitioner Family | DX: E87.8 Other disorders of electrolyte and fluid balance, not elsewhere classified (principal) | CPT/HCPCS: 80053 ==

== ENCOUNTER → 2022-09-13 09:29 | Outpatient (BNVA) | payer MEDICARE, SELFPAY | PROVIDERS: PCP Nurse Practitioner Family; Visit Provider Student in an Organized Health Care Education/Training Program | DX: M75.101 Unspecified rotator cuff tear or rupture of right shoulder, not specified as traumatic (principal) | CPT/HCPCS: 99213 ==

== ENCOUNTER → 2022-09-25 11:36 | Outpatient (BNVA) | payer MEDICARE, SELFPAY | PROVIDERS: PCP Nurse Practitioner Family; Visit Provider Nurse Practitioner Family | DX: N28.9 Disorder of kidney and ureter, unspecified (principal); R94.4 Abnormal results of kidney function studies | CPT/HCPCS: 80053 ==

== ENCOUNTER → 2022-11-28 10:23 | Outpatient (BNVA) | payer MEDICARE, SELFPAY | PROVIDERS: PCP Nurse Practitioner Family; Visit Provider Nurse Practitioner Family | DX: L40.0 Psoriasis vulgaris (principal); L57.0 Actinic keratosis; L81.4 Other melanin hyperpigmentation | CPT/HCPCS: 17000; 17003; 99214 ==

== ENCOUNTER 2022-12-06 10:13 | Outpatient (CLI) | payer MEDICARE, SELFPAY ==
[2022-12-06 11:02] LABS: Basophils % 0.3 %; Eosinophils # 0.1 10^3/uL (0.0-0.8); Hematocrit 38.9 % (42.0-52.0); Hemoglobin 12.7 g/dL (11.7-16.6); Lymphocytes # 1.5 10^3/uL (0.8-4.8); Lymphocytes % 21.9 %; Mean Corpuscular HGB Conc 32.6 g/dL (30.0-36.0); Mean Corpuscular Hemoglobin 32.2 pg (28.0-34.0); Mean Corpuscular Volume 98.7 fl (80-94); Mean Platelet Volume 9.8 fL (7.4-10.4); Monocytes # 0.5 10^3/uL (0.2-0.9); Monocytes % 7.2 %; Neutrophils # 4.71 10^3/uL (1.8-7.7); Neutrophils % 69.2 %; Nucleated Red Blood Cells % 0 %; Platelet Count 183 10^3/cmm (130-400); Red Blood Count 3.94 10^6/uL (4.1-5.3); Red Cell Distribution Width 12.9 % (12.1-15.1); White Blood Count 6.8 10^3/uL (4.0-10.0)
[2022-12-06 11:26] LABS: Alanine Aminotransferase 14 U/L (0-41); Albumin Level 4.6 g/dL (3.5-5.2); Alkaline Phosphatase 82 U/L (40-130); Anion Gap 16.6 (5-19); Aspartate Amino Transferase 26 U/L (0-40); Blood Urea Nitrogen 18 mg/dL (8-23); Calcium 9.3 mg/dL (8.5-10.5); Carbon Dioxide 19 mmol/L (22-29); Chloride 106 mmol/L (98-107); Chol HDL Ratio 7.38 mg/dL (1.0-5.00); Cholesterol 177 mg/dL (0-200); Globulin 2.4 g/dL (1.3-4.6); Glomerular Filtration Rate 67.8 mL/min (90-130); Glucose 96 mg/dL (65-115); HDL Cholesterol 24 mg/dL (60-100); LDL Cholesterol Calculated 91 mg/dL (50-129); LDL HDL Ratio 3.79 RATIO (0.00-3.22); Osmolality Calculated 286 mOsm/kg (285-295); Potassium 4.6 mmol/L (3.5-5.1); Sodium 137 mmol/L (136-145); Total Bilirubin 0.2 mg/dL (0.15-1.2); Triglycerides 309 mg/dL (0-150)
[2022-12-06 11:44] LABS: Hepatitis C Virus Antibody Non-Reactive (Nonreactive)
[2022-12-06 11:54] LABS: Hepatitis B Core AB, Total Non-Reactive (Nonreactive); Hepatitis B Surface AB 3.5 (11.5-1000); Hepatitis B Surface Antigen Non-Reactive (Nonreactive)
[2022-12-10 11:14] LABS: Quantiferon Mitogen >10.00 IU/mL; Quantiferon Nil 0.05 IU/mL; Quantiferon Plus TB1 2.17 IU/mL; Quantiferon Plus TB2 2.68 IU/mL; Quantiferon TB Gold POSITIVE (NEGATIVE)
== END 2022-12-06 10:14 | disposition home or self-care (01) ==
LOC: LAB 10:18
PROVIDERS: PCP Nurse Practitioner Family; Visit Provider Nurse Practitioner Family
DX: D18.01 Hemangioma of skin and subcutaneous tissue (principal); L40.0 Psoriasis vulgaris
CPT/HCPCS: 36415; 80048; 80061; 80076; 85025; 86480; 86705; 86706; 86803; 87340

== ENCOUNTER 2023-04-07 11:55 | Outpatient (CLI) | payer MEDICARE, SELFPAY ==
--- NOTE | 2023-04-07 12:45 | CT_ITS ---
WS: [id number] LDCT LUNG CANCER SCREENING TECHNIQUE: Noncontrast CT of the chest with coronal and sagittal reformatted images. 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 FINDINGS: Lungs are well aerated. No acute pulmonary infiltrates. No suspicious pulmonary parenchymal abnormalities. Dense coronary calcification. Normal caliber thoracic aorta. Tiny esophageal hiatal hernia. Adrenal g lands are normal. Mild thoracic curve. No mediastinal or hilar lymphadenopathy. IMPRESSION: CT/CT lung screening [id number] LUNG-RADS: 1-Negative FOLLOW UP: 12 Month: Continue annual screening with LDCT
== END 2023-04-07 11:56 | disposition home or self-care (01) ==
LOC: RAD 11:55
PROVIDERS: PCP Nurse Practitioner Family; Visit Provider Nurse Practitioner Family
DX: Z12.2 Encounter for screening for malignant neoplasm of respiratory organs (principal); F17.211 Nicotine dependence, cigarettes, in remission
CPT/HCPCS: 71271

== ENCOUNTER → 2023-05-27 08:06 | Outpatient (BNVA) | payer MEDICARE, SELFPAY | PROVIDERS: PCP Nurse Practitioner Family; Visit Provider Physician Assistant | DX: M75.101 Unspecified rotator cuff tear or rupture of right shoulder, not specified as traumatic | CPT/HCPCS: 20610; 99213; J3301 ==

== ENCOUNTER → 2023-06-05 10:02 | Outpatient (BNVA) | payer MEDICARE, SELFPAY | PROVIDERS: PCP Nurse Practitioner Family; Visit Provider Nurse Practitioner Family | DX: L40.0 Psoriasis vulgaris (principal); L81.4 Other melanin hyperpigmentation; D22.5 Melanocytic nevi of trunk; L85.3 Xerosis cutis; L57.8 Other skin changes due to chronic exposure to nonionizing radiation; L98.8 Other specified disorders of the skin and subcutaneous tissue; L72.0 Epidermal cyst | CPT/HCPCS: 99214 ==

== ENCOUNTER → 2023-09-30 08:49 | Outpatient (BNVA) | payer MEDICARE, SELFPAY | PROVIDERS: PCP Nurse Practitioner Family; Visit Provider Nurse Practitioner Family | DX: E78.2 Mixed hyperlipidemia (principal) | CPT/HCPCS: 80053; 80061 ==

== ENCOUNTER → 2024-06-09 10:23 | Outpatient (BNVA) | payer MEDICARE, SELFPAY | PROVIDERS: PCP Nurse Practitioner Family; Visit Provider Nurse Practitioner Family | DX: L40.0 Psoriasis vulgaris (principal); Z79.899 Other long term (current) drug therapy; L81.4 Other melanin hyperpigmentation; D22.5 Melanocytic nevi of trunk; L57.8 Other skin changes due to chronic exposure to nonionizing radiation; L98.8 Other specified disorders of the skin and subcutaneous tissue; L72.0 Epidermal cyst; L57.0 Actinic keratosis | CPT/HCPCS: 17000; 99214 ==

== ENCOUNTER 2024-06-25 09:24 | Outpatient (CLI) | payer MEDICARE, SELFPAY ==
--- NOTE | 2024-06-25 10:00 | CT_ITS ---
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 Coronal and sagittal reformats are submitted with axial MIP series. All CT scans at [facility] use at least one of these dose optimization techniques: automated exposure control; mA and/or kV adjustment per patient size (includes targeted exams where dose is matched to clinical indication); or iterative reconstruction. DLP: 79.79 mGy.cm DIvol: Mean CTDIvol: 1.20 (mGy),Mean CTDIvol: 1.30 (mGy) COMPARISON: 04/07/2023 Diagnostic quality: Satisfactory Lungs: Mild pulmonary hyperexpansion. No pulmonary nodule, mass or endobronchial lesions. Heart: Normal size heart with no pericardial effusion.. Dense coronary artery calcifications. Other findings: Minimal atherosclerosis aorta. Normal size aorta. Normal size pulmonary artery. Small hiatal hernia. No adrenal mass. CT/CT lung screening [id number] IMPRESSION: LUNG-RADS: 1-Negative FOLLOW UP: 12 Month: Continue annual screening with LDCT OTHER FINDINGS (S MODIFIER): None.
== END 2024-06-25 09:25 | disposition home or self-care (01) ==
LOC: RAD 09:25
PROVIDERS: PCP Nurse Practitioner Family; Visit Provider Nurse Practitioner Family
DX: Z12.2 Encounter for screening for malignant neoplasm of respiratory organs (principal); F17.211 Nicotine dependence, cigarettes, in remission; R91.8 Other nonspecific abnormal finding of lung field; I25.10 Atherosclerotic heart disease of native coronary artery without angina pectoris; K44.9 Diaphragmatic hernia without obstruction or gangrene
CPT/HCPCS: 71271

== ENCOUNTER → 2024-09-03 08:00 | Outpatient (BNVA) | payer MEDICARE, SELFPAY | PROVIDERS: PCP Nurse Practitioner Family; Visit Provider Nurse Practitioner Family | DX: E78.2 Mixed hyperlipidemia (principal) | CPT/HCPCS: 80053; 80061 ==

== ENCOUNTER → 2025-03-23 09:15 | Outpatient (BNVA) | payer MEDICARE, SELFPAY | PROVIDERS: PCP Nurse Practitioner Family; Visit Provider Nurse Practitioner Family | DX: E78.2 Mixed hyperlipidemia (principal) | CPT/HCPCS: 80053; 80061 ==